=== PATIENT | female | born 1935 | race Caucasian/White ===

== ENCOUNTER 2017-11-18 07:37 | Emergency (ER) | payer MEDICARE, BC ==
[2017-11-18] MEDS ORDERED: Naproxen TAB* 250 MG PO ONE (08:55)
--- NOTE | 2017-11-18 09:17 | RAD ---
INDICATION: Headaches COMPARISON: CT brain October 24, 2008 TECHNIQUE: Noncontrast axial source images were acquired from the skull base to the vertex. FINDINGS: Ventricles/sulci: The ventricles and cisterns are normal in size and configuration for age. Brain parenchyma: There is no focal parenchymal finding, evidence of intracranial mass, or intracranial mass effect. Intracranial hemorrhage:None. Extra-axial spaces: There are no abnormal extra axial fluid collections or evidence of extra-axial mass. Calvarium: There is no calvarial fracture or other calvarial abnormality. Scalp: There is no evidence of scalp or extracalvarial soft tissue abnormality. Paranasal sinuses/mastoid: The paranasal sinuses and mastoid air cells are clear. Other: None. IMPRESSION: No acute intracranial findings
[2017-11-18 09:40] LABS: Urine Appearance Clear; Urine Blood Negative (Negative); Urine Color Yellow; Urine Ketones Negative (Negative); Urine Protein Negative (Negative); Urine Specific Gravity 1.012 (1.010-1.030); Urine Urobilinogen Negative (Negative)
[2017-11-18 10:17] VITALS: BP 146/68
--- NOTE | 2017-11-19 14:34 | ED ---
Ranjith Romero Angela, scribed for Elvis Hernandez MD on 11/18/17 at 0904 . Headache - HPI Summary HPI Summary: This pt is a 82 y/o female presenting to [facility] c/o headache for the past 6 weeks ago. Pt reports her headache is located in the back of her head and on the frontal area. She rates her headache 5/10 in severity. She denies nasal discharge, blurry vision, tingling, difficulty ambulating, dysuria, hematuria, frequency, urgency. Pt denies recent cold symptoms. Pt takes oxycodone two 300 mg a day. She is also on Xanax 0.5, Ambien, Seroquel. Denies hx of sinusitis. PMHx: migraines. - History Of Current Complaint Chief Complaint: EDHeadache Stated Complaint: HEADACHE Time Seen by Provider: 11/18/17 08:50 Hx Obtained From: Patient Hx Last Menstrual Period: n/a Onset/Duration: Started weeks ago, Still Present Currently Pain Is: Moderate - 5/10 Timing: Constant Location of Headache: Frontal, Occipital Aggravating Factor: Nothing Allevating Factors: Nothing Associated Signs And Symptoms: Negative - Allergies/Home Medications Allergies/Adverse Reactions: Allergies Allergy/AdvReac Type Severity Reaction Status Date / Time baclofen Allergy Rash Verified 11/18/17 07:44 propoxyphene Allergy Rash Verified 11/18/17 07:44 [From Michael] Home Medications: Home Medications Zolpidem CR (NF) [Ambien CR (NF)] 2 tab PO BEDTIME 11/18/17 [History Confirmed 11/18/17] PMH/Surg Hx/FS Hx/Imm Hx Endocrine/Hematology History: Denies: Hx Diabetes Cardiovascular History: Denies: Hx Hypertension, Hx Pacemaker/ICD Respiratory History: Denies: Hx Asthma GI History: Reports: Hx Gastroesophageal Reflux Disease - occas zantac History: Denies: Hx Renal Disease Musculoskeletal History: Reports: Hx Arthritis - BACK, SHOULDERS, Hx Back Problems - S/P lumbar laminectomies 02/01 Sensory History: Reports: Hx Contacts or Glasses Denies: Hx Hearing Aid Opthamlomology History: Reports: Hx Contacts or Glasses Neurological History: Reports: Hx Migraine - PRN HEADACHES- Psychiatric History: Reports: Hx Anxiety, Hx Depression - Being followed by family MD taking med, Hx Panic Disorder - Cancer History Cancer Type, 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 LAMINECTOMY L2 -L4 02-21-12 AT [facility] [place]. X2. 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 Infectious Disease History: No Infectious Disease History: Denies: History Other Infectious Disease, Traveled Outside the [place] in Last 30 Days - Family History Known Family History: Positive: Cardiac Disease - mother, Hypertension - mother Family History: no cardio vascular issues reported - Social History Alcohol Use: Occasionally Substance Use Type: Reports: Prescribed Substance Use Comment - Amount & Last Used: hydrocodone Hx Tobacco Use: No Smoking Status (MU): Never Smoked Tobacco Review of Systems Negative: Fever, Chills Negative: Blurred Vision, Erythema Negative: Sore Throat, Nasal Discharge Negative: Chest Pain Negative: Shortness Of Breath, Cough Negative: Abdominal Pain, Vomiting, Nausea Negative: dysuria, frequency, hematuria, urgency Negative: Myalgia, Edema Negative: Rash Neurological: Other - NEG: dizziness, difficulty ambulating Positive: Headache. Negative: Paresthesia All Other Systems Reviewed And Are Negative: Yes Physical Exam - Summary Physical Exam Summary: Constitutional: Well-developed, Well-nourished, Alert. (-) Distressed Skin: Warm, Dry HENT: Normocephalic; Atraumatic Eyes: Conjunctiva normal Neck: Musculoskeletal ROM normal neck. (-) JVD, (-) Stridor, (-) Tracheal deviation Cardio: Rhythm regular, rate normal, Heart sounds normal; Intact distal pulses; The pedal pulses are 2+ and symmetric. Radial pulses are 2+ and symmetric. (-) Murmur Pulmonary/Chest wall: Effort normal. (-) Respiratory distress, (-) Wheezes, (-) Rales Abd: Soft. (-) Tenderness, (-) Distension, (-) Guarding, (-) Rebound Musculoskeletal: (-) Edema Lymph: (-) Cervical adenopathy Neuro: Alert, Oriented x3, Strength normal, Cranial nerves II-XII are grossly intact. (-) Dysmetria, (-) Nystagmus, (-) Ataxia by finger to nose testing, (-) Sensory deficit. Psych: Mood and affect Normal Triage Information Reviewed: Yes Vital Signs On Initial Exam: Initial Vitals Temp Pulse Resp BP Pulse Ox 98.9 F 92 16 148/68 99 11/18/17 07:41 11/18/17 07:41 11/18/17 07:41 11/18/17 07:41 11/18/17 07:41 Vital Signs Reviewed: Yes - Sunil Coma Scale Best Eye Response: 4 - Spontaneous Best Motor Response: 6 - Obeys Commands Best Verbal Response: 5 - Oriented Coma Scale Total: 15 Diagnostics - Vital Signs Vital Signs Temp Pulse Resp BP Pulse Ox 11/18/17 07:41 98.9 F 92 16 148/68 99 - Laboratory Lab Statement: Any lab studies that have been ordered have been reviewed, and results considered in the medical decision making process. - CT Brain CT CT Interpretation: No Acute Changes - IMPRESSION: No acute intracranial findings. Dr. Hernandez has reviewed this radiology report. CT Interpretation Completed By: Radiologist Re-Evaluation - Re-Evaluation First Eval Re-Evaluation Time: 09:58 Comment: I discussed with the pt that she may need an outpatient MRI given the duration of her headache. Headache Course/Dx - Course Course Of Treatment: Brain CT was ordered and it resulted negative. Urinalysis was obtained. I discussed with the pt that she may need an outpatient MRI given the duration of her headache. Pt was discharged home with a prescription for naproxen. She was given return to ED instructions. - Diagnoses Provider Diagnoses: Chronic headache Discharge - Discharge Plan Condition: Stable Disposition: HOME Prescriptions: Naproxen TAB* [Naprosyn 250 mg TAB*] 500 mg PO Q8H PRN #15 tab PRN Reason: Pain Scale 6-10 Patient Education Materials: General Headache (ED) Referrals: Kelton Gomez MD [Primary Care Provider] - 2 Days (in 2-3 days.) Additional Instructions: You may need an outpatient MRI given the duration of your headache. Follow up with your primary care provider in 2-3 days. RETURN TO THE EMERGENCY DEPARTMENT FOR CHANGING OR WORSENING SYMPTOMS. The documentation as recorded by the Ranjith vargas Angela accurately reflects the service I personally performed and the decisions made by me, Elvis Hernandez MD.
== END 2017-11-18 10:16 | disposition home or self-care (01) ==
LOC: ED 07:37
DX: R51 Headache (principal)
CPT/HCPCS: 70450; 81003; 81015; 87077; 87086; 87186; 99282; A9270-GY

== ENCOUNTER 2017-12-15 04:21 | Emergency (ER) | payer MEDICARE, BC ==
[2017-12-15] MEDS ORDERED: Aspirin TAB* 325 MG PO ONE (04:48)
[2017-12-15] MEDS ORDERED: Aspirin Low Dose CHEW TAB* 81 MG ONE (05:22)
[2017-12-15] MEDS ORDERED: Aspirin Low Dose CHEW TAB* 81 MG PO ONE ×2 (05:30→05:32)
[2017-12-15 06:07] LABS: ABS Basophils 0.1 10^3/ul (0-0.2); ABS Eosinophils 0.2 10^3/ul (0-0.6); ABS Lymphocytes 2.3 10^3/ul (1.0-4.8); ABS Monocytes 0.4 10^3/ul (0-0.8); ABS Neutrophils 3.3 10^3/ul (1.5-7.7); ABS Nucleated RBC 0 10^3/ul; Eosinophil % 2.6 % (0-6); Hematocrit 38 % (35-47); Hemoglobin 12.9 g/dl (12.0-16.0); Lymphocyte % 36.1 % (25-47); Mean Corpuscular HGB Conc 34 g/dl (31-36); Mean Corpuscular Hemoglobin 30 pg (27-31); Mean Corpuscular Volume 88 fL (80-97); Mean Platelet Volume 7.6 um3 (7.4-10.4); Nucleated Red Blood Cells % 0.1; Platelet Count 182 10^3/ul (150-450); Red Blood Count 4.32 10^6/ul (4.0-5.4); Red Cell Distribution Width 14 % (10.5-15); White Blood Count 6.2 10^3/ul (3.5-10.8)
[2017-12-15 06:29] LABS: EGFR Non-African American 104.2 (>60)
[2017-12-15 07:16] VITALS: BP 143/64
--- NOTE | 2017-12-15 08:25 | RAD ---
Indication: Chest discomfort and LEFT shoulder pain. Comparison: March 31, 2013 chest radiograph and August 15, [address] Technique: Upright AP 0500 hours Report: Mild prominence of interstitial markings without change. Mild prominence of the RIGHT infrahilar contour which appears different than the prior exam concerning for a potential perihilar mass. Negative for pleural effusions or pneumothorax. The heart, pulmonary vasculature, and mediastinal contours are unremarkable. IMPRESSION: 1. No evidence for pulmonary edema. 2. Potential RIGHT infrahilar mass. Consider contrast-enhanced CT for further assessment.
--- NOTE | 2017-12-17 12:03 | ED ---
Progress - Progress Note Progress Note: Patient seen for both headache and chest pain on the and of this month. During one of her visits (appears the ), a portable chest AP view was taken. There are no notes in either providers' report to indicate this was reviewed however discharge does not indicate there were any acute findings. Radiology's final report indicates "impression: 1. No evidence of pulmonary edema #2. Potential right infrahilar mass. Consider contrast-enhanced CT for further assessment." Discussed #2. findings with patient who reports she is no longer having a headache or chest pain and she denies shortness of breath or respiratory distress. She has not scheduled a follow-up with Dr. Little as advised to do so in d/c however after discussing these newfound results on chest x-ray, she agrees to do so. Explained this could be something that requires further imaging such as a CT scan and her primary care doctor will order that if necessary. Also explained if she develops any danger signs or symptoms in the meantime to return to the emergency department. Patient agrees with plan. Course/Dx - Diagnoses Provider Diagnoses: Palpitation, Atypical chest pain Discharge - Sign-Out/Discharge Documenting (check all that apply): Post-Discharge Follow Up - Discharge Plan Condition: Improved Disposition: HOME Patient Education Materials: Chest Pain (ED), Heart Palpitations (ED) Referrals: Kelton Gomez MD [Primary Care Provider] - 2 Days - Billing Disposition and Condition Condition: IMPROVED Disposition: HOME
== END 2017-12-15 07:14 | disposition home or self-care (01) ==
LOC: ED 04:21
DX: R00.2 Palpitations (principal); R07.9 Chest pain, unspecified
CPT/HCPCS: 36415; 71045; 80053; 83735; 83880; 84484; 85025; 93005; 99282; A9270-GY

== ENCOUNTER 2019-11-09 06:46 | Emergency (ER) | payer MEDICARE, BC, OTHER ==
--- OUTSIDE RECORDS SUMMARY | 2019-11-09 06:56 | XMS REPORT | Continuity of Care Document ---
:1935 External Reference #:[id number] Author Name MIGDALIA Camp Address [address] [place] [address] Care Team Providers Name Role Phone Jose Tuttle MD - Neurological Care Team Information Wire Chief [phone] Surgery Kelton Gomez MD - Family Medicine Care Team Information Wire Chief [phone] Natalee Bruce - Dermatology Care Team Information Wire Chief [facility] - Interventional Pain Care Team Information Wire Chief Medicine Donaldo Causey - Pain Care Team Information Wire Chief [phone] Vini Parish - Urology Care Team Information Wire Chief [phone] Jaycee Barton MD - Dermatology Care Team Information Wire Chief [phone] [facility] Physical Therapy - Care Team Information Wire Chief Physical Therapist Ranjith Cruz - Gastroenterology Care Team Information Wire Chief [phone] [facility] - Care Team Information Wire Chief Prost[facility] Physical Care Team Information Wire Chief Therapy - Physical Therapy Albert Rizzo MD - Gastroenterology Care Team Information Wire Chief Problems Active Problems Provider Date Depressive disorder Kelton Gomez M.D. Onset: 06/24/2011 Backache Kelton Gomez M.D. Onset: 11/13/2011 Hyperlipidemia Kelton Gomez M.D. Onset: 02/19/2012 Gastroesophageal reflux disease Kelton Gomez M.D. Onset: 09/26/2012 History of malignant melanoma of the skin Kelton Gomez M.D. Onset: 07/25 Bipolar disorder Kelton Gomez M.D. Onset: 09/30/2018 Multiple myeloma Kelton Gomez M.D. Onset: 06/19/2019 Nausea Kelton Gomez M.D. Onset: 04/18/2019 Weight decreased Kelton Gomez M.D. Onset: 04/18/2019 Social History Type Date Description Comments Sex Unknown Tobacco Use Start: Unknown Never Smoked Cigarettes ETOH Use Rarely consumes alcohol Tobacco Use Start: Unknown Patient has never smoked Smoking Status Reviewed: 07/14/18 Patient has never smoked Allergies, Adverse Reactions, Alerts Active Allergies Reaction Severity Comments Date Darvocet rash 08/22/1998 Baclofen hives 07/14/2012 Medications Active Medications SIG Qnty Indications Ordering Date Provider Doxycycline Hyclate 1 by mouth twice 20tabs R05 Jes 10/16/2019 a day for 10 Adrienne, TITLE 1 TUTOR 100mg Tablets days Omeprazole Take One Capsule 60caps Kelton FSundeep 04/18/2019 20mg Every Day Mariam Gomez Capsules DR Quetiapine Fumarate Take 2 Tablets 120tabs Kelton FSundeep 02/07/2019 By Mouth Every Mariam Gomez 25mg Tablets Day AT Bedtime Zolpidem Tartrate ER take 1-2 by 60Tablet Kelton FSundeep 01/17/2019 mouth 30 minutes Mariam Gomez 6.25mg Tablets ER prior to bedtime Tramadol HCL 1 by mouth every 100tabs Kelton FSundeep 01/16/2019 50mg 6 hours as Mariam Gomez Tablets needed Gabapentin Take 1 Capsule 90caps R07.89 Maryjo CSundeep 08/27/2018 300mg By Mouth Three 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 10/16/2019 Dispers times a day hours as needed nausea Immunizations CPT Code Status Date Vaccine Lot # [id number] Given 06/19/2019 High-Dose, Influenza Virus Vacccine-fluzone 65 and [id number] older 51178 Given 07/02/2018 High-Dose, Influenza Virus Vacccine-fluzone 65 and [id number] older 16969 Given 06/24/2017 High-Dose, Influenza Virus Vacccine-fluzone 65 and [id number] older 26887 Given 07/06/2016 High-Dose, Influenza Virus Vacccine-fluzone 65 and [id number] older 99966 Given 07/25/2015 High-Dose, Influenza Virus Vacccine-fluzone 65 and [id number] older 89989 Given 11/25/2014 Pneumococcal Conjugate Vacc-13 [id number] 30029 Given 07/20/2014 High-Dose, Influenza Virus Vacccine-fluzone 65 and [id number] older 91841 Given 10/05/2013 High-Dose, Influenza Virus Vacccine-fluzone 65 and [id number] older 67606 Given 09/26/2012 Zostivax [id number] 79504 Given 07/01/2012 High-Dose, Influenza Virus Vacccine-fluzone 65 and [id number] older [id number] Given 09/26/2011 Split Influenza Medicare: Fluzone 11279 Given 08/26/2009 DO Not Use Split Influenza Virus Vaccine [id number] 23189 Given 07/06/2008 Tdap Tetanus, W Pertussis [id number] 31799 Given 07/06/2008 DO Not Use Split Influenza Virus Vaccine [id number] 75333 Given 07/24/2007 Pneumococcal Immunization [id number] 40759 Given 07/22/2006 DO Not Use Split Influenza Virus Vaccine [id number] Vital Signs Date Vital Result Comment 10/16/2019 3:03pm BP Systolic 130 mmHg BP Diastolic 64 mmHg Heart Rate 100 /min Body Temperature 99.5 F Respiratory Rate 20 /min O2 % BldC Oximetry 94 % Height 58.5 inches 4'10.50" Weight 108.00 lb BMI (Body Mass Index) 22.2 kg/m2 09/11/2019 12:36pm BP Systolic 128 mmHg BP Diastolic 68 mmHg Heart Rate 72 /min Body Temperature 98.6 F Respiratory Rate 16 /min Weight 109.00 lb Results Test Acquired Date Facility Test Result H/L Range Note Flu A&B (Fma) 10/16/2019 [facility] Influenza A negative (607)- - Influenza B negative CBC Auto Diff 10/12/2019 [facility] White Blood Count 6.8 10^3/uL Normal 3.5- 10.8 Red Blood Count 4.13 10^6/uL Normal 3.70-4.87 Hemoglobin 12.7 g/dL Normal 12.0-16.0 Hematocrit 38 % Normal 35-47 Mean Corpuscular Volume 91 fL Normal 80-97 Mean Corpuscular Hemoglobin 31 pg Normal 27-31 Mean Corpuscular HGB Conc 34 g/dL Normal 31-36 Red Cell Distribution Width 17 % High 10-15 Platelet Count 171 10^3/uL Normal 150-450 Mean Platelet Volume 8.7 fL Normal 7.4-10.4 Abs Neutrophils 3.9 10^3/uL Normal 1.5-7.7 Abs Lymphocytes 1.1 10^3/uL Normal 1.0-4.8 Abs Monocytes 0.3 10^3/uL Normal 0-0.8 Abs Eosinophils 1.4 10^3/uL High 0-0.6 Abs Basophils 0.1 10^3/uL Normal 0-0.2 Abs Nucleated RBC 0.0 10^3/uL Granulocyte % 57.2 % Lymphocyte % 16.9 % Monocyte % 4.2 % Eosinophil % 20.3 % Basophil % 1.4 % Nucleated Red Blood Cells % 0.0 Comp Metabolic Panel 10/12/2019 [facility] Sodium 140 mmol/L Normal 135-145 Potassium 3.6 mmol/L Normal 3.5-5.0 Chloride 103 mmol/L Normal 101-111 Co2 Carbon Dioxide 32 mmol/L Normal 22-32 Anion Gap 5 mmol/L Normal 2-11 Glucose 89 mg/dL Normal 70-100 Blood Urea Nitrogen 9 mg/dL Normal 6-24 Creatinine 0.58 mg/dL Normal 0.51-0.95 BUN/Creatinine Ratio 15.5 Normal 8-20 Calcium 8.5 mg/dL Low 8.6-10.3 Total Protein 6.2 g/dL Low 6.4-8.9 Albumin 4.0 g/dL Normal 3.2-5.2 Globulin 2.2 g/dL Normal 2-4 Albumin/Globulin Ratio 1.8 Normal 1-3 Total Bilirubin 0.40 mg/dL Normal 0.2-1.0 Alkaline Phosphatase 79 U/L Normal 34-104 Alt 18 U/L Normal 7-52 Ast 22 U/L Normal 13-39 Egfr Non- 99.5 >60 Egfr 120.4 >60 1 CBC Auto Diff 10/05/2019 [facility] White Blood Count 6.6 10^3/uL Normal 3.5- 10.8 Red Blood Count 4.18 10^6/uL Normal 3.70-4.87 Hemoglobin 12.8 g/dL Normal 12.0-16.0 Hematocrit 38 % Normal 35-47 Mean Corpuscular Volume 91 fL Normal 80-97 Mean Corpuscular Hemoglobin 31 pg Normal 27-31 Mean Corpuscular HGB Conc 34 g/dL Normal 31-36 Red Cell Distribution Width 16 % High 10-15 Platelet Count 159 10^3/uL Normal 150-450 Mean Platelet Volume 8.0 fL Normal 7.4-10.4 Abs Neutrophils 3.6 10^3/uL Normal 1.5-7.7 Abs Lymphocytes 1.3 10^3/uL Normal 1.0-4.8 Abs Monocytes 0.6 10^3/uL Normal 0-0.8 Abs Eosinophils 0.9 10^3/uL High 0-0.6 Abs Basophils 0.1 10^3/uL Normal 0-0.2 Abs Nucleated RBC 0.0 10^3/uL Granulocyte % 55.2 % Lymphocyte % 20.4 % Monocyte % 9.3 % Eosinophil % 13.9 % Basophil % 1.2 % Nucleated Red Blood Cells % 0.0 Comp Metabolic Panel 10/05/2019 [facility] Sodium 140 mmol/L Normal 135-145 Potassium 3.6 mmol/L Normal 3.5-5.0 Chloride 103 mmol/L Normal 101-111 Co2 Carbon Dioxide 31 mmol/L Normal 22-32 Anion Gap 6 mmol/L Normal 2-11 Glucose 124 mg/dL High 70-100 Blood Urea Nitrogen 10 mg/dL Normal 6-24 Creatinine 0.64 mg/dL Normal 0.51-0.95 BUN/Creatinine Ratio 15.6 Normal 8-20 Calcium 8.9 mg/dL Normal 8.6-10.3 Total Protein 5.8 g/dL Low 6.4-8.9 Albumin 3.7 g/dL Normal 3.2-5.2 Globulin 2.1 g/dL Normal 2-4 Albumin/Globulin Ratio 1.8 Normal 1-3 Total Bilirubin 0.40 mg/dL Normal 0.2-1.0 Alkaline Phosphatase 73 U/L Normal 34-104 Alt 20 U/L Normal 7-52 Ast 21 U/L Normal 13-39 Egfr Non- 88.8 >60 Egfr 107.5 >60 2 [place]/Lambda Free Light 10/05/2019 [facility] [place] Free Light 14.4 mg/dL Abnormal 3 Chains Ser Chain Lambda Free Light Chain 0.8670 mg/dL 4 [place]/Lambda Free Light Chain 16.6 Abnormal 5 CBC Auto Diff 09/28/2019 [facility] White Blood Count 5.8 10^3/uL Normal 3.5- 10.8 Red Blood Count 4.09 10^6/uL Normal 3.70-4.87 Hemoglobin 12.6 g/dL Normal 12.0-16.0 Hematocrit 37 % Normal 35-47 Mean Corpuscular Volume 91 fL Normal 80-97 Mean Corpuscular Hemoglobin 31 pg Normal 27-31 Mean Corpuscular HGB Conc 34 g/dL Normal 31-36 Red Cell Distribution Width 16 % High 10-15 Platelet Count 185 10^3/uL Normal 150-450 Mean Platelet Volume 8.9 fL Normal 7.4-10.4 Abs Neutrophils 4.0 10^3/uL Normal 1.5-7.7 Abs Lymphocytes 0.8 10^3/uL Low 1.0-4.8 Abs Monocytes 0.5 10^3/uL Normal 0-0.8 Abs Eosinophils 0.4 10^3/uL Normal 0-0.6 Abs Basophils 0.1 10^3/uL Normal 0-0.2 Abs Nucleated RBC 0.0 10^3/uL Granulocyte % 69.2 % Lymphocyte % 14.4 % Monocyte % 8.1 % Eosinophil % 7.3 % Basophil % 1.0 % Nucleated Red Blood Cells % 0.0 Comp Metabolic Panel 09/28/2019 [facility] Sodium 140 mmol/L Normal 135-145 Potassium 3.4 mmol/L Low 3.5-5.0 Chloride 101 mmol/L Normal 101-111 Co2 Carbon Dioxide 34 mmol/L High 22-32 Anion Gap 5 mmol/L Normal 2-11 Glucose 101 mg/dL High 70-100 Blood Urea Nitrogen 9 mg/dL Normal 6-24 Creatinine 0.61 mg/dL Normal 0.51-0.95 BUN/Creatinine Ratio 14.8 Normal 8-20 Calcium 9.1 mg/dL Normal 8.6-10.3 Total Protein 6.2 g/dL Low 6.4-8.9 Albumin 4.0 g/dL Normal 3.2-5.2 Globulin 2.2 g/dL Normal 2-4 Albumin/Globulin Ratio 1.8 Normal 1-3 Total Bilirubin 0.40 mg/dL Normal 0.2-1.0 Alkaline Phosphatase 71 U/L Normal 34-104 Alt 21 U/L Normal 7-52 Ast 21 U/L Normal 13-39 Egfr Non- 93.9 >60 Egfr 113.6 >60 6 CBC Auto Diff 09/21/2019 [facility] White Blood Count 5.3 10^3/uL Normal 3.5- 10.8 Red Blood Count 3.99 10^6/uL Normal 3.70-4.87 Hemoglobin 12.3 g/dL Normal 12.0-16.0 Hematocrit 36 % Normal 35-47 Mean Corpuscular Volume 91 fL Normal 80-97 Mean Corpuscular Hemoglobin 31 pg Normal 27-31 Mean Corpuscular HGB Conc 34 g/dL Normal 31-36 Red Cell Distribution Width 16 % High 10-15 Platelet Count 218 10^3/uL Normal 150-450 Mean Platelet Volume 8.5 fL Normal 7.4-10.4 Abs Neutrophils 3.6 10^3/uL Normal 1.5-7.7 Abs Lymphocytes 1.0 10^3/uL Normal 1.0-4.8 Abs Monocytes 0.4 10^3/uL Normal 0-0.8 Abs Eosinophils 0.3 10^3/uL Normal 0-0.6 Abs Basophils 0.0 10^3/uL Normal 0-0.2 Abs Nucleated RBC 0.0 10^3/uL Granulocyte % 68.0 % Lymphocyte % 18.8 % Monocyte % 6.8 % Eosinophil % 5.8 % Basophil % 0.6 % Nucleated Red Blood Cells % 0.0 CBC Auto Diff 09/14/2019 [facility] White Blood Count 4.7 10^3/uL Normal 3.5- 10.8 Red Blood Count 4.08 10^6/uL Normal 3.70-4.87 Hemoglobin 12.9 g/dL Normal 12.0-16.0 Hematocrit 37 % Normal 35-47 Mean Corpuscular Volume 92 fL Normal 80-97 Mean Corpuscular Hemoglobin 32 pg High 27-31 Mean Corpuscular HGB Conc 35 g/dL Normal 31-36 Red Cell Distribution Width 15 % Normal 10-15 Platelet Count 159 10^3/uL Normal 150-450 Mean Platelet Volume 7.8 fL Normal 7.4-10.4 Abs Neutrophils 2.7 10^3/uL Normal 1.5-7.7 Abs Lymphocytes 1.1 10^3/uL Normal 1.0-4.8 Abs Monocytes 0.6 10^3/uL Normal 0-0.8 Abs Eosinophils 0.2 10^3/uL Normal 0-0.6 Abs Basophils 0.1 10^3/uL Normal 0-0.2 Abs Nucleated RBC 0.0 10^3/uL Granulocyte % 57.1 % Lymphocyte % 24.1 % Monocyte % 13.2 % Eosinophil % 3.5 % Basophil % 2.1 % Nucleated Red Blood Cells % 0.1 Comp Metabolic Panel 09/14/2019 [facility] Sodium 142 mmol/L Normal 135-145 Potassium 4.0 mmol/L Normal 3.5-5.0 Chloride 105 mmol/L Normal 101-111 Co2 Carbon Dioxide 32 mmol/L Normal 22-32 Anion Gap 5 mmol/L Normal 2-11 Glucose 112 mg/dL High 70-100 Blood Urea Nitrogen 12 mg/dL Normal 6-24 Creatinine 0.59 mg/dL Normal 0.51-0.95 BUN/Creatinine Ratio 20.3 High 8-20 Calcium 9.4 mg/dL Normal 8.6-10.3 Total Protein 6.4 g/dL Normal 6.4-8.9 Albumin 4.1 g/dL Normal 3.2-5.2 Globulin 2.3 g/dL Normal 2-4 Albumin/Globulin Ratio 1.8 Normal 1-3 Total Bilirubin 0.40 mg/dL Normal 0.2-1.0 Alkaline Phosphatase 67 U/L Normal 34-104 Alt 16 U/L Normal 7-52 Ast 18 U/L Normal 13-39 Egfr Non- 97.6 >60 Egfr 118.1 >60 7 CBC Auto Diff 09/07/2019 [facility] White Blood Count 8.0 10^3/uL Normal 3.5- 10.8 Red Blood Count 4.07 10^6/uL Normal 3.70-4.87 Hemoglobin 12.6 g/dL Normal 12.0-16.0 Hematocrit 37 % Normal 35-47 Mean Corpuscular Volume 91 fL Normal 80-97 Mean Corpuscular Hemoglobin 31 pg Normal 27-31 Mean Corpuscular HGB Conc 34 g/dL Normal 31-36 Red Cell Distribution Width 15 % Normal 10-15 Platelet Count 179 10^3/uL Normal 150-450 Mean Platelet Volume 8.3 fL Normal 7.4-10.4 Abs Neutrophils 5.6 10^3/uL Normal 1.5-7.7 Abs Lymphocytes 1.1 10^3/uL Normal 1.0-4.8 Abs Monocytes 0.8 10^3/uL Normal 0-0.8 Abs Eosinophils 0.4 10^3/uL Normal 0-0.6 Abs Basophils 0.1 10^3/uL Normal 0-0.2 Abs Nucleated RBC 0.0 10^3/uL Granulocyte % 69.9 % Lymphocyte % 13.5 % Monocyte % 10.3 % Eosinophil % 5.4 % Basophil % 0.9 % Nucleated Red Blood Cells % 0.0 Comp Metabolic Panel 09/07/2019 [facility] Sodium 142 mmol/L Normal 135-145 Potassium 3.8 mmol/L Normal 3.5-5.0 Chloride 104 mmol/L Normal 101-111 Co2 Carbon Dioxide 32 mmol/L Normal 22-32 Anion Gap 6 mmol/L Normal 2-11 Glucose 100 mg/dL Normal 70-100 Blood Urea Nitrogen 10 mg/dL Normal 6-24 Creatinine 0.60 mg/dL Normal 0.51-0.95 BUN/Creatinine Ratio 16.7 Normal 8-20 Calcium 9.8 mg/dL Normal 8.6-10.3 Total Protein 6.6 g/dL Normal 6.4-8.9 Albumin 4.4 g/dL Normal 3.2-5.2 Globulin 2.2 g/dL Normal 2-4 Albumin/Globulin Ratio 2.0 Normal 1-3 Total Bilirubin 0.40 mg/dL Normal 0.2-1.0 Alkaline Phosphatase 66 U/L Normal 34-104 Alt 19 U/L Normal 7-52 Ast 20 U/L Normal 13-39 Egfr Non- 95.7 >60 Egfr 115.8 >60 8 Comp Metabolic Panel 08/31/2019 [facility] Sodium 141 mmol/L Normal 135-145 Potassium 3.9 mmol/L Normal 3.5-5.0 Chloride 101 mmol/L Normal 101-111 Co2 Carbon Dioxide 33 mmol/L High 22-32 Anion Gap 7 mmol/L Normal 2-11 Glucose 117 mg/dL High 70-100 Blood Urea Nitrogen 8 mg/dL Normal 6-24 Creatinine 0.56 mg/dL Normal 0.51-0.95 BUN/Creatinine Ratio 14.3 Normal 8-20 Calcium 10.0 mg/dL Normal 8.6-10.3 Total Protein 6.4 g/dL Normal 6.4-8.9 Albumin 4.5 g/dL Normal 3.2-5.2 Globulin 1.9 g/dL Low 2-4 Albumin/Globulin Ratio 2.4 Normal 1-3 Total Bilirubin 0.30 mg/dL Normal 0.2-1.0 Alkaline Phosphatase 67 U/L Normal 34-104 Alt 17 U/L Normal 7-52 Ast 22 U/L Normal 13-39 Egfr Non- 103.6 >60 Egfr 125.4 >60 9 CBC Auto Diff 08/31/2019 [facility] White Blood Count 4.6 10^3/uL Normal 3.5- 10.8 Red Blood Count 4.00 10^6/uL Normal 3.70-4.87 Hemoglobin 12.2 g/dL Normal 12.0-16.0 Hematocrit 36 % Normal 35-47 Mean Corpuscular Volume 91 fL Normal 80-97 Mean Corpuscular Hemoglobin 30 pg Normal 27-31 Mean Corpuscular HGB Conc 33 g/dL Normal 31-36 Red Cell Distribution Width 15 % Normal 10-15 Platelet Count 197 10^3/uL Normal 150-450 Mean Platelet Volume 7.3 fL Low 7.4-10.4 Abs Neutrophils 3.1 10^3/uL Normal 1.5-7.7 Abs Lymphocytes 0.7 10^3/uL Low 1.0-4.8 Abs Monocytes 0.4 10^3/uL Normal 0-0.8 Abs Eosinophils 0.3 10^3/uL Normal 0-0.6 Abs Basophils 0.0 10^3/uL Normal 0-0.2 Abs Nucleated RBC 0.0 10^3/uL Granulocyte % 68.5 % Lymphocyte % 16.0 % Monocyte % 9.2 % Eosinophil % 5.6 % Basophil % 0.7 % Nucleated Red Blood Cells % 0.1 Laboratory test 08/25/2019 [facility] Point of Care 108 mg/dL High 70-100 10 finding Glucose CBC Auto Diff 08/24/2019 [facility] White Blood Count 4.5 10^3/uL Normal 3.5- 10.8 Red Blood Count 4.03 10^6/uL Normal 3.70-4.87 Hemoglobin 12.4 g/dL Normal 12.0-16.0 Hematocrit 36 % Normal 35-47 Mean Corpuscular Volume 90 fL Normal 80-97 Mean Corpuscular Hemoglobin 31 pg Normal 27-31 Mean Corpuscular HGB Conc 34 g/dL Normal 31-36 Red Cell Distribution Width 15 % Normal 10-15 Platelet Count 219 10^3/uL Normal 150-450 Mean Platelet Volume 6.9 fL Low 7.4-10.4 Abs Neutrophils 2.7 10^3/uL Normal 1.5-7.7 Abs Lymphocytes 1.2 10^3/uL Normal 1.0-4.8 Abs Monocytes 0.4 10^3/uL Normal 0-0.8 Abs Eosinophils 0.2 10^3/uL Normal 0-0.6 Abs Basophils 0.0 10^3/uL Normal 0-0.2 Abs Nucleated RBC 0.0 10^3/uL Granulocyte % 59.7 % Lymphocyte % 26.5 % Monocyte % 9.1 % Eosinophil % 4.0 % Basophil % 0.7 % Nucleated Red Blood Cells % 0.1 Comp Metabolic Panel 08/24/2019 [facility] Sodium 140 mmol/L Normal 135-145 Potassium 4.1 mmol/L Normal 3.5-5.0 Chloride 105 mmol/L Normal 101-111 Co2 Carbon Dioxide 30 mmol/L Normal 22-32 Anion Gap 5 mmol/L Normal 2-11 Glucose 102 mg/dL High 70-100 Blood Urea Nitrogen 13 mg/dL Normal 6-24 Creatinine 0.63 mg/dL Normal 0.51-0.95 BUN/Creatinine Ratio 20.6 High 8-20 Calcium 10.0 mg/dL Normal 8.6-10.3 Total Protein 6.7 g/dL Normal 6.4-8.9 Albumin 4.6 g/dL Normal 3.2-5.2 Globulin 2.1 g/dL Normal 2-4 Albumin/Globulin Ratio 2.2 Normal 1-3 Total Bilirubin 0.40 mg/dL Normal 0.2-1.0 Alkaline Phosphatase 66 U/L Normal 34-104 Alt 15 U/L Normal 7-52 Ast 25 U/L Normal 13-39 Egfr Non- 90.5 >60 Egfr 109.5 >60 11 Leukemia/Lymphoma Phenot 07/13/2019 [facility] Path Interpretation 2-8 Marker TNP Path Interpret 9-15 Marker (SEE NOTE) 12 Path Interpret > 16 Marker TNP Plasma Cell Profliferative 07/13/2019 [facility] Plasma Cell Dis Res Abnormal Disorder Summary Plasma Cell Prolif Specimen Bone Marrow Plasma Cell Referral Reason multiple myeloma <SEE NOTE> 13 Plasma Cell Prolif Dis Method See Comment 14 Plasma Cell Dis Result Table See Comment 15 Plasma Cell Prolif Dis Results See Comment 16 Plasma Cell Dis Interpretation See Comment 17 Plasma Cell Dis Disclaimer See Comment 18 Plasma Cell Dis Released By See Comment 19 Bone Marrow Chromosomes 07/13/2019 [facility] BM Result Summary Normal BM Chromosome Specimen Bone Marrow BM Referral Reason multiple myeloma <SEE NOTE> 20 BM Chromosome Method See Comment 21 BM Chromo Banding Method See Comment 22 BM Cromosome Results 46,XX[20] BM Chromosome Interpretation See Comment 23 Released By See Comment 24 CBC Auto Diff 07/13/2019 [facility] White Blood Count 4.8 10^3/uL Normal 3.5- 10.8 Red Blood Count 3.95 10^6/uL Normal 3.70-4.87 Hemoglobin 11.9 g/dL Low 12.0-16.0 Hematocrit 36 % Normal 35-47 Mean Corpuscular Volume 90 fL Normal 80-97 Mean Corpuscular Hemoglobin 30 pg Normal 27-31 Mean Corpuscular HGB Conc 33 g/dL Normal 31-36 Red Cell Distribution Width 15 % Normal 10-15 Platelet Count 195 10^3/uL Normal 150-450 Mean Platelet Volume 7.2 fL Low 7.4-10.4 Abs Neutrophils 2.4 10^3/uL Normal 1.5-7.7 Abs Lymphocytes 1.9 10^3/uL Normal 1.0-4.8 Abs Monocytes 0.4 10^3/uL Normal 0-0.8 Abs Eosinophils 0.2 10^3/uL Normal 0-0.6 Abs Basophils 0.0 10^3/uL Normal 0-0.2 Abs Nucleated RBC 0.0 10^3/uL Granulocyte % 49.0 % Lymphocyte % 39.6 % Monocyte % 7.3 % Eosinophil % 3.7 % Basophil % 0.4 % Nucleated Red Blood Cells % 0.1 Xray 06/08/2019 [facility] MRI Thoracic Spine W/Wo Contrast <pending> [phone] Mammography Screening, Bilateral; 2-View Each Breast <pending> CBC Auto Diff 06/05/2019 [facility] White Blood Count 6.0 10^3/uL Normal 3.5- 10.8 Red Blood Count 4.33 10^6/uL Normal 3.70-4.87 Hemoglobin 13.2 g/dL Normal 12.0-16.0 Hematocrit 39 % Normal 35-47 Mean Corpuscular Volume 89 fL Normal 80-97 Mean Corpuscular Hemoglobin 30 pg Normal 27-31 Mean Corpuscular HGB Conc 34 g/dL Normal 31-36 Red Cell Distribution Width 16 % High 10-15 Platelet Count 183 10^3/uL Normal 150-450 Mean Platelet Volume 7.4 fL Normal 7.4-10.4 Abs Neutrophils 3.1 10^3/uL Normal 1.5-7.7 Abs Lymphocytes 2.2 10^3/uL Normal 1.0-4.8 Abs Monocytes 0.4 10^3/uL Normal 0-0.8 Abs Eosinophils 0.2 10^3/uL Normal 0-0.6 Abs Basophils 0.1 10^3/uL Normal 0-0.2 Abs Nucleated RBC 0.0 10^3/uL Granulocyte % 52.0 % Lymphocyte % 37.2 % Monocyte % 7.2 % Eosinophil % 2.7 % Basophil % 0.9 % Nucleated Red Blood Cells % 0.1 [place]/Lambda Free Light 06/05/2019 [facility] [place] Free Light 221 mg/dL Abnormal 25 Chains Ser Chain Lambda Free Light Chain 0.1280 mg/dL Abnormal 26 [place]/Lambda Free Light Chain >1000 Abnormal 27 Protein Electrophoresis 06/05/2019 [facility] Total Protein(Pep) 6.7 g/dL 6.3 - 7.9 Albumin 3.7 g/dL 3.4-4.7 Alpha-1 Globulin 0.2 g/dL 0.1-0.3 Alpha-2 Globulin 1.3 g/dL Abnormal 0.6-1.0 Beta Globulin 1.1 g/dL 0.7-1.2 Gamma Globulin 0.4 g/dL Abnormal 0.6-1.6 Albumin/Globulin Ratio 1.21 Impression See Comment 28 Laboratory test 05/05/2019 [facility] Clotest SEE RESULT BELOW 29, 30 finding Laboratory test 05/05/2019 [facility] Surgical Pathology SEE RESULT BELOW 31 , 32 finding Order 1 Because ethnic data is not always readily available, this report includes an eGFR for both -Americans and non- Americans. The National Kidney Disease Education Program (NKDEP) does not endorse the use of the MDRD equation for patients that are not between the ages of 18 and 70, are , have extremes of body size, muscle mass, or nutritional status, or are non- or non-. According to the National Kidney Foundation, irrespective of diagnosis, the stage of the disease is based on the level of kidney function: Stage Description GFR(mL/min/1.73 m(2)) 1 Kidney damage with normal or decreased GFR 90 2 Kidney damage with mild decrease in GFR 60-89 3 Moderate decrease in GFR 30-59 4 Severe decrease in GFR 15-29 5 Kidney failure <15 (or dialysis) 2 Because ethnic data is not always readily available, this report includes an eGFR for both -Americans and non- Americans. The National Kidney Disease Education Program (NKDEP) does not endorse the use of the MDRD equation for patients that are not between the ages of 18 and 70, are , have extremes of body size, muscle mass, or nutritional status, or are non- or non-. According to the National Kidney Foundation, irrespective of diagnosis, the stage of the disease is based on the level of kidney function: Stage Description GFR(mL/min/1.73 m(2)) 1 Kidney damage with normal or decreased GFR 90 2 Kidney damage with mild decrease in GFR 60-89 3 Moderate decrease in GFR 30-59 4 Severe decrease in GFR 15-29 5 Kidney failure <15 (or dialysis) 3 REFERENCE VALUE 0.3300-1.94 4 REFERENCE VALUE 0.5700-2.63 5 REFERENCE VALUE 0.2600-1.65 Test Performed by: [facility] [address] [place] [address] Dispensing Optician: Yang Eldridge M.D. Ph.D.; IA# [id number] 6 Because ethnic data is not always readily available, this report includes an eGFR for both -Americans and non- Americans. The National Kidney Disease Education Program (NKDEP) does not endorse the use of the MDRD equation for patients that are not between the ages of 18 and 70, are , have extremes of body size, muscle mass, or nutritional status, or are non- or non-. According to the National Kidney Foundation, irrespective of diagnosis, the stage of the disease is based on the level of kidney function: Stage Description GFR(mL/min/1.73 m(2)) 1 Kidney damage with normal or decreased GFR 90 2 Kidney damage with mild decrease in GFR 60-89 3 Moderate decrease in GFR 30-59 4 Severe decrease in GFR 15-29 5 Kidney failure <15 (or dialysis) 7 Because ethnic data is not always readily available, this report includes an eGFR for both -Americans and non- Americans. The National Kidney Disease Education Program (NKDEP) does not endorse the use of the MDRD equation for patients that are not between the ages of 18 and 70, are , have extremes of body size, muscle mass, or nutritional status, or are non- or non-. According to the National Kidney Foundation, irrespective of diagnosis, the stage of the disease is based on the level of kidney function: Stage Description GFR(mL/min/1.73 m(2)) 1 Kidney damage with normal or decreased GFR 90 2 Kidney damage with mild decrease in GFR 60-89 3 Moderate decrease in GFR 30-59 4 Severe decrease in GFR 15-29 5 Kidney failure <15 (or dialysis) 8 Because ethnic data is not always readily available, this report includes an eGFR for both -Americans and non- Americans. The National Kidney Disease Education Program (NKDEP) does not endorse the use of the MDRD equation for patients that are not between the ages of 18 and 70, are , have extremes of body size, muscle mass, or nutritional status, or are non- or non-. According to the National Kidney Foundation, irrespective of diagnosis, the stage of the disease is based on the level of kidney function: Stage Description GFR(mL/min/1.73 m(2)) 1 Kidney damage with normal or decreased GFR 90 2 Kidney damage with mild decrease in GFR 60-89 3 Moderate decrease in GFR 30-59 4 Severe decrease in GFR 15-29 5 Kidney failure <15 (or dialysis) 9 Because ethnic data is not always readily available, this report includes an eGFR for both -Americans and non- Americans. The National Kidney Disease Education Program (NKDEP) does not endorse the use of the MDRD equation for patients that are not between the ages of 18 and 70, are , have extremes of body size, muscle mass, or nutritional status, or are non- or non-. According to the National Kidney Foundation, irrespective of diagnosis, the stage of the disease is based on the level of kidney function: Stage Description GFR(mL/min/1.73 m(2)) 1 Kidney damage with normal or decreased GFR 90 2 Kidney damage with mild decrease in GFR 60-89 3 Moderate decrease in GFR 30-59 4 Severe decrease in GFR 15-29 5 Kidney failure <15 (or dialysis) 10 Ware Tester: [id number] 11 Because ethnic data is not always readily available, this report includes an eGFR for both -Americans and non- Americans. The National Kidney Disease Education Program (NKDEP) does not endorse the use of the MDRD equation for patients that are not between the ages of 18 and 70, are , have extremes of body size, muscle mass, or nutritional status, or are non- or non-. According to the National Kidney Foundation, irrespective of diagnosis, the stage of the disease is based on the level of kidney function: Stage Description GFR(mL/min/1.73 m(2)) 1 Kidney damage with normal or decreased GFR 90 2 Kidney damage with mild decrease in GFR 60-89 3 Moderate decrease in GFR 30-59 4 Severe decrease in GFR 15-29 5 Kidney failure <15 (or dialysis) 12 FINAL DIAGNOSIS: Specimen Source: Bone marrow Flow cytometry immunophenotypic analysis: Involved by clonal, kappa light chain restricted plasma cell population (2% of gated) Interpretative data: Blasts: 0% Lymphocytes: 49% of WBCs B-cells: 4% of lymphocytes with no evidence of light chain restriction or other immunophenotypic abnormalities T-cells/NK cells: No aberrant population detected. Plasma cells: Clonal, kappa restricted plasma cells are 2% of gated. Markers tested: CD3, CD10, CD16, CD19, CD34, CD45, kappa surface light chains, lambda surface light chains, CD19, CD38, CD45, CD138 and cytoplasmic kappa and lambda light chains, 7-AAD. Quality Assessment: Acceptable Viability: Acceptable Viable lymphocytes (7-AAD): 98% of gated Specimen received within validated guidelines. A Joseph-Giemsa stained slide prepared from the flow cytometry specimen was examined for quality purposes. Electronically signed by: Abisai Long MD 07/15/19 8308 Technical component performed by: [place] [address] Wash Operator: Yang Eldridge II, MD, PhD. 13 multiple myeloma/MM 14 Locus and probes [Strategy;#Nuclei;Class] 1p36.3(TP73),1q22 [COPY#;50;LDT] 3CEN(D3Z1),7CEN(D7Z1) [COPY#;50;ASR] 8q24(5'MYC,3'MYC) [BAP;50;ASR] 9CEN(D9Z1),15CEN(D15Z4) [COPY#;50;ASR] 11q13(CCND1-XT),14q32(IGH-XT) [DFISH;50;ASR] 13q14(RB1),13q34(LAMP1) [COPY#;50;ASR] 14q32(3'IGH,5'IGH) [BAP;50;LDT] 17p13.1(TP53),17CEN(D17Z1) [COPY#;50;ASR] Probe strategies include: DFISH=dual color, double fusion; BAP=break-apart probe; COPY#=region gain and loss. 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 At diagnosis, the combination of monosomy 13 and t(11;14) has uncertain prognostic significance in multiple myeloma (Hirsch et al., Blood 101:5720-5379, 2003). The prognostic significance for these abnormalities in MGUS, amyloidosis, or smoldering multiple myeloma is unknown. Additional cytogenetic studies are reported separately. 18 Applicable to Analyte Specific Reagent (ASR) and Laboratory Developed Tests (LDT). This test was developed and its performance characteristics determined by [facility] in a manner consistent with CLIA requirements. It has not been cleared or approved by the U.S. Food and Drug Administration. This FISH test does not rule out other chromosome abnormalities. 19 RESULT: Apryl Haskins M.D. Test Performed by: [place] [address] Dispensing Optician: Yang Eldridge M.D. Ph.D.; CLIA# [id number] 20 multiple myeloma/MM 21 RESULT: Culture without mitogens 22 Band Resolution: <400 Stain Name Cells Analyzed Cells Karyograms Counted Prepared GTL 20 0 2 Total 20 0 2 Murrell to Stain Name: GTL=G-banding; QFQ=Q-banding; DAPI=DAPI-staining; CBL=C-banding; AGNOR=Silver-staining; NON=Non-banded The sum of Cells Analyzed and Cells Counted equals the total cells examined. 23 No clonal abnormality was apparent. Additional cytogenetic studies are reported separately. 24 RESULT: Kalie Doyle D.O. Test Performed by: [place] [id number] Dispensing Optician: Yang Eldridge M.D. Ph.D.; CLIA# [id number] 25 REFERENCE VALUE 0.3300-1.94 26 REFERENCE VALUE 0.5700-2.63 27 REFERENCE VALUE 0.2600-1.65 Test Performed by: [facility] [place] [address] Dispensing Optician: Yang Eldridge M.D. 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 Suggest Immunoglobulin Free Light Chain, Serum if clinically indicated. Call MLI within 7 days to add FLCP to the stored sample. Test Performed by: [facility] [place] [address] Dispensing Optician: Yang Eldridge M.D. Ph.D.; CLIA# [id number] 29 [id number] 30 SEE RESULT BELOW Name: SHERLY BARDALES : [address]: Albert Rizzo MD Acct: [id number] Unit: [id number] AGE: 84 Location: [facility] Re05/05/19 SEX: F Status: DEP REF SPEC: [id number] LILLIANA: 05/05/19 [facility] DR: Albert Rizzo MD REQ: [id number] RECD: 05/05/19 STATUS: JULIAN BECK DR: Kelton Gomez MD _ SOURCE: GAS ANTRUM SPDESC: ORDERED: Clotest COMMENTS: [id number] Procedure Result Reported Site Clotest Final 05/06/19728 ML Clotest Negative * ML - Main Lab . END OF REPORT DEPARTMENT OF PATHOLOGY, [address] [place] [address] Abisai Long M.D. Director ZEN # [id number] 31 [id number] 32 SEE RESULT BELOW Name: SHERLY BARDALES : [address]: Albert Rizzo MD Acct: [id number] Unit: [id number] AGE: 84 Location: [facility] Re05/05/19 SEX: F Status: DEP REF SPEC: [id number] LILLIANA: 05/05/19 [facility] DR: Albert Rizzo MD REQ: [id number] RECD: 05/05/19 STATUS: ABBIE BECK DR: Kelton Gomez MD _ ORDERED: LEVEL 4 COMMENTS: [id number] FINAL DIAGNOSIS Small bowel, duodenum, biopsy: -- Small bowel mucosa with normal villous architecture and no significant pathologic abnormality. CLINICAL HISTORY Nausea; vomiting; weight loss POST-OPERATIVE DIAGNOSIS EGD: esophagus - all normal; gastric - normal; biopsy; duodenum - normal; biopsy GROSS DESCRIPTION The specimen is received in formalin labeled, Duodenum Biopsy, and consists of two denis irregular soft tissue fragments measuring 0.3 x 0.2 x 0.2 cm and 0.6 x 0.2 x 0.1 cm which are submitted entirely in one cassette. Signed by and Reported on: Abisai Long MD 1435 END OF REPORT DEPARTMENT OF PATHOLOGY, [address] [place] [address] Abisai Long M.D. Director [facility] # [id number] Procedures Date Code Description Status 04/18/2019 41511 Electrocardiogram Complete Completed 01/16/2019 [id number] Bone Mineral Density Test Completed 01/12/2019 [id number] Colonoscopy Completed 07/16/2018 [id number] Mammogram Completed 07/15/2017 [id number] Mammogram Completed 06/11/2016 [id number] Mammogram Completed 08/08/2015 [id number] Colonoscopy Completed 04/07/2015 [id number] Mammogram Completed 04/02/2014 [id number] Mammogram Completed 03/31/2013 [id number] Mammogram Completed 03/17/2012 [id number] Mammogram Completed 02/16/2011 [id number] Mammogram Completed 12/26/2010 [id number] Colonoscopy Completed Medical Devices Description No Information Available Encounters Type Date Location Provider Dx Diagnosis Office Visit 09/11/2019 [facility] Office Kelton Gomez, C90.00 Multiple myeloma 11:20a M.D. not having achieved remission F31.81 Bipolar II disorder Office Visit 06/19/2019 10:00a [facility] Office Kelton Kendall Z23 Encounter for Mariam Gomez immunization C90.00 Multiple myeloma not having achieved remission Office Visit 05/07/2019 1:40p [facility] Office Kelton Kendall R63.4 Abnormal weight Mildred Gomez. loss Office Visit 04/18/2019 10:40a [facility] Kelton eKndall R63.4 Abnormal weight Rick GomezD. loss R11.0 Nausea R53.81 Other malaise Assessments Date Code Description Provider 10/16/2019 [id number] Greene 10/16/2019 R50.9 Fever, unspecified Jes Deleon, [facility] 09/11/2019 C90.00 Multiple myeloma not having achieved Kelton Gomez M.D. remission 09/11/2019 F31.81 Bipolar II disorder Kelton Gomez M.D. 06/19/2019 Z23 Encounter for immunization Kelton Gomez M.D. 06/19/2019 C90.00 Multiple myeloma not having achieved Kelton Gomez M.D. remission 05/07/2019 R63.4 Abnormal weight loss Kelton Gomez M.D. 04/18/2019 R63.4 Abnormal weight loss Kelton Gomez M.D. 04/18/2019 R11.0 Nausea Kelton Gomez M.D. 04/18/2019 R53.81 Other malaise Kelton Gomez M.D. Plan of Treatment Future Appointment(s):10/22/2019 3:00 pm - Maryjo Wolfe NP at Main B[facility]3201/11/2020 11:00 am - Kelton Gomez M.D. at [facility] [id number] - Jes Deleon, [id number] CoughNew Medication:Doxycycline Hyclate 100 mg - 1 by mouth twice a day for 10 daysComments:start antibiotics today, finish thempush fluids--pedialyte, gatorade-- should be available at the drugstoreRESk to use Tylenol and ibuprofen alternating for feverIf you can't control your fever, go to Emergency RoomIF you can't keep fluids in , go to Emergency Room If your breathing worsens, go to Emergency RoomFollow up:next / follow-upR50.9 Fever, unspecifiedAllComments:Medication Management Patient Understands medications he 's taking? Yes No Are there Barriers to Adherence? Yes No Has the patient been asked about herbal supplements and therapies, andOTC meds? Yes No As always, we strongly encourage a healthy diet and making physical activity a part of your every day life. If you have questions about how or where to start, please contact the office. Functional Status Description No Information Available Mental Status Description No Information Available Referrals Refer to Reason for Referral Status Appt Date Timmy Gamez Consult and treat. LT Scheduled 06/05/[address] [address] [phone] Timmy Gamez Consult and treat. LT Scheduled 06/05/2019 201 [place] [id number] [phone] Albert Rizzo MD EGD. LT Scheduled 04/29/[address] [place] [phone]
--- OUTSIDE RECORDS SUMMARY | 2019-11-09 06:56 | XMS REPORT | Continuity of Care Document ---
:1935 External Reference #:[id number] Author Name Maryjo Wolfe NP Address [address] [place] [address] Care Team Providers Name Role Phone Jose Tuttle MD - Neurological Care Team Information Compliance Project Manager Surgery Kelton Gomez MD - Family Medicine Care Team Information Compliance Project Manager [phone] Natalee Bruce - Dermatology Care Team Information Compliance Project Manager [phone] [facility] Pain Clinic - Interventional Pain Care Team Information Compliance Project Manager Medicine Donaldo Causey - Pain Care Team Information Compliance Project Manager [phone] Vini Parish - Urology Care Team Information Compliance Project Manager [phone] Jaycee Barton MD - Dermatology Care Team Information Compliance Project Manager [facility] Physical Therapy - Care Team Information Compliance Project Manager Physical Therapist Ranjith Cruz - Gastroenterology Care Team Information Compliance Project Manager [facility] Prosthetics And Orthotics - Care Team Information Compliance Project Manager Prosthetic[facility] Physical Care Team Information Compliance Project Manager Therapy - Physical Therapy Albert Rizzo MD - Gastroenterology Care Team Information Compliance Project Manager Problems Active Problems Provider Date Depressive disorder [...] Jes 10/16/2019 a day for 10 Adrienne, SU[employer] 100mg Tablets days Omeprazole Take One Capsule [...] CSundeep 08/27/2018 300mg By Mouth Three Aiden, [employer] GUIDANCE COUNSELOR Capsules Times A Day Alprazolam 1/2 -1 by mouth 60tabs Kelton FSundeep 07/15/2017 0.5mg three times a Mariam Gomez Tablets day as needed Revlimid 1 tab po x14 Unknown 25mg Capsules days then 1 week off then repeat Velcade Inj 1 injection Unknown weekly Dexamethasone 10 po every week Unknown 4mg Tablets Immunizations CPT Code Status Date Vaccine Lot # [id number] Given 06/19/2019 High-Dose, Influenza Virus Vacccine-fluzone 65 and [id number] older 26373 Given 07/02/2018 High-Dose, Influenza Virus Vacccine-fluzone 65 and [id number] older 34524 Given 06/24/2017 High-Dose, Influenza Virus Vacccine-fluzone 65 and [id number] older 49742 Given 07/06/2016 High-Dose, Influenza Virus Vacccine-fluzone 65 and [id number] older 86579 Given 07/25/2015 High-Dose, Influenza Virus Vacccine-fluzone 65 and [id number] older 56789 Given 11/25/2014 Pneumococcal Conjugate Vacc-13 [id number] 99265 Given 07/20/2014 High-Dose, Influenza Virus Vacccine-fluzone 65 and [id number] older 86009 Given 10/05/2013 High-Dose, Influenza Virus Vacccine-fluzone 65 and [id number] older 99654 Given 09/26/2012 Zostivax [id number] 67982 Given 07/01/2012 High-Dose, Influenza Virus Vacccine-fluzone 65 and [id number] older Q2038 Given 09/26/2011 Split Influenza Medicare: Fluzone 54459 Given 08/26/2009 DO Not Use Split Influenza Virus Vaccine [id number] 75752 Given 07/06/2008 Tdap Tetanus, W Pertussis [id number] 09539 Given 07/06/2008 DO Not Use Split Influenza Virus Vaccine [id number] 25669 Given 07/24/2007 Pneumococcal Immunization [id number] 97036 Given 07/22/2006 DO Not Use Split Influenza Virus Vaccine [id number] Vital Signs Date Vital Result Comment 10/22/2019 2:56pm BP Systolic 122 mmHg BP Diastolic 60 mmHg Heart Rate 94 /min Body Temperature 98.4 F Respiratory Rate 18 /min O2 % BldC Oximetry 96 % Height 58.5 inches 4'10.50" Weight 108.00 lb BMI (Body Mass Index) 22.2 kg/m2 10/16/2019 3:03pm BP Systolic 130 mmHg BP Diastolic 64 mmHg Heart Rate 100 /min Body Temperature 99.5 F Respiratory Rate 20 /min O2 % BldC Oximetry 94 % Height 58.5 inches 4'10.50" Weight 108.00 lb BMI (Body Mass Index) 22.2 kg/m2 Results Test Acquired Date Facility Test Result H/L Range Note CBC Auto Diff 10/19/2019 [facility] White Blood 8.1 10^3/uL Normal 3.5-10.8 Count Red Blood Count 4.06 10^6/uL Normal 3.70-4.87 Hemoglobin 12.4 g/dL Normal 12.0-16.0 Hematocrit 36 % Normal 35-47 Mean Corpuscular Volume 89 fL Normal 80-97 Mean Corpuscular Hemoglobin 31 pg Normal 27-31 Mean Corpuscular HGB Conc 35 g/dL Normal 31-36 Red Cell Distribution Width 17 % High 10-15 Platelet Count 184 10^3/uL Normal 150-450 Mean Platelet Volume 9.0 fL Normal 7.4-10.4 Abs Neutrophils 4.6 10^3/uL Normal 1.5-7.7 Abs Lymphocytes 1.4 10^3/uL Normal 1.0-4.8 Abs Monocytes 0.7 10^3/uL Normal 0-0.8 Abs Eosinophils 1.3 10^3/uL High 0-0.6 Abs Basophils 0.1 10^3/uL Normal 0-0.2 Abs Nucleated RBC 0.0 10^3/uL Granulocyte % 57.2 % Lymphocyte % 16.6 % Monocyte % 8.1 % Eosinophil % 16.6 % Basophil % 1.5 % Nucleated Red Blood Cells % 0.0 Comp Metabolic Panel 10/19/2019 [facility] Sodium 138 mmol/L Normal 135-145 Potassium 3.1 mmol/L Low 3.5-5.0 Chloride 100 mmol/L Low 101-111 Co2 Carbon Dioxide 29 mmol/L Normal 22-32 Anion Gap 9 mmol/L Normal 2-11 Glucose 119 mg/dL High 70-100 Blood Urea Nitrogen 8 mg/dL Normal 6-24 Creatinine 0.55 mg/dL Normal 0.51-0.95 BUN/Creatinine Ratio 14.5 Normal 8-20 Calcium 7.9 mg/dL Low 8.6-10.3 Total Protein 6.1 g/dL Low 6.4-8.9 Albumin 3.7 g/dL Normal 3.2-5.2 Globulin 2.4 g/dL Normal 2-4 Albumin/Globulin Ratio 1.5 Normal 1-3 Total Bilirubin 0.50 mg/dL Normal 0.2-1.0 Alkaline Phosphatase 56 U/L Normal 34-104 Alt 33 U/L Normal 7-52 Ast 31 U/L Normal 13-39 Egfr Non- 105.8 >60 Egfr 128.0 >60 1 Laboratory test 10/19/2019 [facility] Magnesium 1.8 mg/dL Low 1.9-2.7 finding Flu A&B (Fma) 10/16/2019 [facility] Influenza A negative (607)- - Influenza B negative CBC Auto Diff 10/12/2019 [facility] White Blood Count 6.8 10^3/uL Normal 3.5- [...] Cells % 0.0 Comp Metabolic Panel 10/12/2019 [facility] Sodium 140 mmol/L Normal 135-145 Potassium 3.6 [...] Egfr Non- 99.5 >60 Egfr 120.4 >60 2 [place]/Lambda Free Light 10/05/2019 [facility] [place] Free Light 14.4 mg/dL Abnormal 3 Chains Ser Chain Lambda Free Light Chain 0.8670 mg/dL 4 [place]/Lambda Free Light Chain 16.6 Abnormal 5 Comp Metabolic Panel 10/05/2019 [facility] Sodium 140 mmol/L Normal 135-145 Potassium 3.6 [...] Egfr Non- 88.8 >60 Egfr 107.5 >60 6 CBC Auto Diff 10/05/2019 [facility] White Blood Count 6.6 10^3/uL Normal 3.5- [...] Blood Cells % 0.0 CBC Auto Diff 09/28/2019 [facility] White Blood Count 5.8 10^3/uL Normal 3.5- [...] Cells % 0.0 Comp Metabolic Panel 09/28/2019 [facility] Sodium 140 mmol/L Normal 135-145 Potassium 3.4 [...] Egfr Non- 93.9 >60 Egfr 113.6 >60 7 CBC Auto Diff 09/21/2019 [facility] White Blood Count 5.3 10^3/uL Normal 3.5- [...] Cells % 0.0 CBC Auto Diff 09/14/2019 [facility] White Blood Count 4.7 10^3/uL Normal 3.5- [...] Cells % 0.1 Comp Metabolic Panel 09/14/2019 [facility] Sodium 142 mmol/L Normal 135-145 Potassium 4.0 [...] Egfr Non- 97.6 >60 Egfr 118.1 >60 8 CBC Auto Diff 09/07/2019 [facility] White Blood Count 8.0 10^3/uL Normal 3.5- [...] Cells % 0.0 Comp Metabolic Panel 09/07/2019 [facility] Sodium 142 mmol/L Normal 135-145 Potassium 3.8 [...] Egfr Non- 95.7 >60 Egfr 115.8 >60 9 Comp Metabolic Panel 08/31/2019 [facility] Sodium 141 mmol/L Normal 135-145 Potassium 3.9 [...] Egfr Non- 103.6 >60 Egfr 125.4 >60 10 CBC Auto Diff 08/31/2019 [facility] White Blood Count 4.6 10^3/uL Normal 3.5- [...] Blood Cells % 0.1 Laboratory test 08/25/2019 [facility] Point of Care 108 mg/dL High 70-100 11 finding Glucose CBC Auto Diff 08/24/2019 [facility] White Blood Count 4.5 10^3/uL Normal 3.5- [...] Cells % 0.1 Comp Metabolic Panel 08/24/2019 [facility] Sodium 140 mmol/L Normal 135-145 Potassium 4.1 [...] Egfr Non- 90.5 >60 Egfr 109.5 >60 12 Leukemia/Lymphoma Phenot 07/13/2019 [facility] Path Interpretation 2-8 Marker TNP Path Interpret 9-15 Marker (SEE NOTE) 13 Path Interpret > 16 Marker TNP Plasma Cell Profliferative 07/13/2019 [facility] Plasma Cell Dis Res Abnormal Disorder Summary Plasma Cell Prolif Specimen Bone Marrow Plasma Cell Referral Reason multiple myeloma <SEE NOTE> 14 Plasma Cell Prolif Dis Method See Comment 15 Plasma Cell Dis Result Table See Comment 16 Plasma Cell Prolif Dis Results See Comment 17 Plasma Cell Dis Interpretation See Comment 18 Plasma Cell Dis Disclaimer See Comment 19 Plasma Cell Dis Released By See Comment 20 Bone Marrow Chromosomes 07/13/2019 [facility] BM Result Summary Normal BM Chromosome Specimen Bone Marrow BM Referral Reason multiple myeloma <SEE NOTE> 21 BM Chromosome Method See Comment 22 BM Chromo Banding Method See Comment 23 BM Cromosome Results 46,XX[20] BM Chromosome Interpretation See Comment 24 Released By See Comment 25 CBC Auto Diff 07/13/2019 [facility] White Blood Count 4.8 10^3/uL Normal 3.5- [...] Red Blood Cells % 0.1 Xray 06/08/2019 [facility] MRI Thoracic Spine W/Wo Contrast <pending> [phone] Mammography Screening, Bilateral; 2-View Each Breast <pending> CBC Auto Diff 06/05/2019 [facility] White Blood Count 6.0 10^3/uL Normal 3.5- [...] % Nucleated Red Blood Cells % 0.1 [place]/Lambda Free Light 06/05/2019 [facility] [place] Free Light 221 mg/dL Abnormal 26 Chains Ser Chain Lambda Free Light Chain 0.1280 mg/dL Abnormal 27 [place]/Lambda Free Light Chain >1000 Abnormal 28 Protein Electrophoresis 06/05/2019 [facility] Total Protein(Pep) 6.7 g/dL 6.3 - 7.9 Albumin 3.7 g/dL 3.4-4.7 Alpha-1 Globulin 0.2 g/dL 0.1-0.3 Alpha-2 Globulin 1.3 g/dL Abnormal 0.6-1.0 Beta Globulin 1.1 g/dL 0.7-1.2 Gamma Globulin 0.4 g/dL Abnormal 0.6-1.6 Albumin/Globulin Ratio 1.21 Impression See Comment 29 Laboratory test 05/05/2019 [facility] Clotest SEE RESULT BELOW 30, 31 finding Laboratory test 05/05/2019 [facility] Surgical Pathology SEE RESULT BELOW 32 , 33 finding Order 1 Because ethnic data is [...] 5 REFERENCE VALUE 0.2600-1.65 Test Performed by: [facility] [address] [place] [address] Commercial Announcer: Yang Eldridge M.D. Ph.D.; CLIA# [id number] 6 Because ethnic data is not always [...] 5 Kidney failure <15 (or dialysis) 10 Because ethnic data is not always readily [...] 15-29 5 Kidney failure <15 (or dialysis) 11 Weld Fitter: [id number] 12 Because ethnic data is not always readily [...] 15-29 5 Kidney failure <15 (or dialysis) 13 FINAL DIAGNOSIS: Specimen Source: Bone marrow Flow [...] Electronically signed by: Abisai Long MD 07/15/19 5713 Technical component performed by: [place] [id number] Anesthesiology Resident: Yang Eldridge II, MD, PhD. 14 multiple myeloma/MM 15 Locus and probes [Strategy;#Nuclei;Class] 1p36.3(TP73),1q22 [COPY#;50;LDT] 3CEN(D3Z1),7CEN(D7Z1) [COPY#;50;ASR] 8q24(5'MYC,3'MYC) [BAP;50;ASR] 9CEN(D9Z1),15CEN(D15Z4) [COPY#;50;ASR] 11q13(CCND1-XT),14q32(IGH-XT) [DFISH;50;ASR] 13q14(RB1),13q34(LAMP1) [COPY#;50;ASR] 14q32(3'IGH,5'IGH) [BAP;50;LDT] 17p13.1(TP53),17CEN(D17Z1) [COPY#;50;ASR] Probe strategies include: DFISH=dual color, double fusion; BAP=break-apart probe; COPY#=region gain and loss. 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 At diagnosis, the combination of monosomy 13 and t(11;14) has uncertain prognostic significance in multiple myeloma (Hirsch et al., Blood 101:3841-4614, 2003). The prognostic significance for these abnormalities in MGUS, amyloidosis, or smoldering multiple myeloma is unknown. Additional cytogenetic studies are reported separately. 19 Applicable to Analyte Specific Reagent (ASR) and Laboratory Developed Tests (LDT). This test was developed and its performance characteristics determined by [facility] in a manner consistent with CLIA requirements. It has not been cleared or approved by the U.S. Food and Drug Administration. This FISH test does not rule out other chromosome abnormalities. 20 RESULT: Apryl Haskins M.D. Test Performed by: [facility] - [address] [address] Commercial Announcer: Yang Eldridge M.D. Ph.D.; CLIA# [id number] 21 multiple myeloma/MM 22 RESULT: Culture without mitogens 23 Band Resolution: <400 Stain Name Cells Analyzed Cells Karyograms Counted Prepared GTL 20 0 2 Total 20 0 2 Murrell to Stain Name: GTL=G-banding; QFQ=Q-banding; DAPI=DAPI-staining; CBL=C-banding; AGNOR=Silver-staining; NON=Non-banded The sum of Cells Analyzed and Cells Counted equals the total cells examined. 24 No clonal abnormality was apparent. Additional cytogenetic studies are reported separately. 25 RESULT: Kalie Doyle D.O. Test Performed by: [facility] [place] [place] [address] Commercial Announcer: Yang Eldridge M.D. Ph.D.; CLIA# [id number] 26 REFERENCE VALUE 0.3300-1.94 27 REFERENCE VALUE 0.5700-2.63 28 REFERENCE VALUE 0.2600-1.65 Test Performed by: [place] [address] Commercial Announcer: Yang Eldridge M.D. 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 Suggest Immunoglobulin Free Light Chain, Serum if clinically indicated. Call [facility] within 7 days to add FLCP to the stored sample. Test Performed by: [place] [address] Commercial Announcer: Yang Eldridge M.D. Ph.D.; CLIA# [id number] 30 [id number] 31 SEE RESULT BELOW Name: SHERLY BARDALES : [address]: Albert Rizzo MD Acct: [id number] Unit: [id number] AGE: 84 Location: ENDOCEC Re05/05/19 SEX: F Status: DEP REF SPEC: [id number] LILLIANA: 05/05/19-[address] [facility] [address]: Albert Rizzo MD REQ: [id number] RECD: 05/05/19-1329 STATUS: COMP OTHR DR: Kelton Gomez MD _ SOURCE: GAS ANTRUM SPDESC: ORDERED: Clotest COMMENTS: [id number] Procedure Result Reported Site Clotest Final 05/06/19- 728 ML Clotest Negative * ML - Main Lab . END OF REPORT DEPARTMENT OF PATHOLOGY, [address] [place] [address] Abisai Long M.D. Director [facility] # [id number] 32 [id number] 33 SEE RESULT BELOW Name: SHERLY BARDALES : [address]: Albert Rizzo MD Acct: [id number] Unit: [id number] AGE: 84 Location: ENDOCEC Re05/05/19 SEX: F Status: DEP REF SPEC: [id number] LILLIANA: 05/05/[address] [facility] [address]: Albert Rizzo MD REQ: [id number] RECD: 05/05/19 STATUS: ABBIE BECK DR: Kelton Gomez MD _ ORDERED: LEVEL 4 COMMENTS: [id number] FINAL DIAGNOSIS Small bowel, duodenum, biopsy: -- [...] 1435 END OF REPORT DEPARTMENT OF PATHOLOGY, [address] [place] [address] Abisai Long M.D. Director [facility] # [id number] Procedures Date Code Description Status 01/16/2019 [id number] Bone Mineral Density Test Completed 01/12/2019 21256582 Colonoscopy Completed 07/16/2018 18897741 Mammogram Completed 07/15/2017 24878854 Mammogram Completed 06/11/2016 81933906 Mammogram Completed 08/08/2015 32057387 Colonoscopy Completed 04/07/2015 61592482 Mammogram Completed 04/02/2014 21267135 Mammogram Completed 03/31/2013 65257897 Mammogram Completed 03/17/2012 63583354 Mammogram Completed 02/16/2011 20856187 Mammogram Completed 12/26/2010 30503391 Colonoscopy Completed Medical Devices Description No Information Available Encounters Type Date Location Provider Dx Diagnosis Office Visit 09/11/2019 [facility] Office Kelton Gomez, C90.00 Multiple myeloma 11:20a M.D. not having achieved remission F31.81 Bipolar II disorder Office Visit 06/19/2019 10:00a [facility] Kelton Kendall Z23 Encounter for Mariam Gomez immunization C90.00 Multiple myeloma not having achieved remission Office Visit 05/07/2019 1:40p Main Office Kelton Gomez, R63.4 Abnormal weight M.D. loss Assessments Date Code Description Provider 10/22/2019 R05 Cough Maryjo Wolfe, [employer] COUNSELOR 10/22/2019 R50.9 Fever, unspecified Maryjo Wolfe, NOLAN 10/22/2019 C90.00 Multiple myeloma not having achieved Maryjo Wolfe, NOLAN remission 10/16/2019 R05 Cough Jes Deleon, [employer] 10/16/2019 R50.9 Fever, unspecified Jes Deleon, [employer] 09/11/2019 C90.00 Multiple myeloma not having achieved Kelton Gomez M.D. remission 09/11/2019 F31.81 Bipolar II disorder Kelton Gomez M.D. 06/19/2019 Z23 Encounter for immunization Kelton Gomez M.D. 06/19/2019 C90.00 Multiple myeloma not having achieved Kelton Gomez M.D. remission 05/07/2019 R63.4 Abnormal weight loss Kelton Gomez M.D. Plan of Treatment Future Appointment(s):01/11/2020 11:00 am - Kelton Gomez M.D. at [facility] Ismjch1610/22/2019 - Maryjo Wolfe, NPR05 CoughComments:Improved -- please continue treatment as planned. Your cough should improve on its own over the course of weeks. Any sudden worsening should prompt a follow-up exam here.R50.9 Fever, tsqrznoankvI41.00 Multiple myeloma not having achieved remissionComments: Continue to follow-up with Dr. Gamez as planned.AllComments:1. Patient has been queried about patient's goals/preferences and functional/lifestyle goals at relevant visits. If relevant, describe: Has been discussed, noted above2. Treatment goals as explainedto the patient: see above3. Are there barriers to meeting treatment goals? Yes If Yes, please describe: Barriers include possible insurance limits, disease process, and difficulty with lifestyle changes4. Self-Management goals as described to the patient: Yes, see above As always, we strongly encourage a healthy diet and making physical activity a part of your every day life. If you have questions about how or where to start, please contact the office. Functional Status Description No Information Available Mental Status Description No Information Available Referrals Refer to Reason for Referral Status Appt Date Timmy Gamez Consult and treat. LT Scheduled 06/05/2019 201 [facility] Remind [address] [address] [phone] Timmy Gamez Consult and treat. LT Scheduled 06/05/[address] [place] [address] [address] [phone]
[2019-11-09] MEDS ORDERED: NS 0.9% 1000 ML** 1,000 ML IV ONE (07:11)
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
--- NOTE | 2019-11-09 07:24 | ED ---
Complex/Multi-Sys Presentation - HPI Summary HPI Summary: Pt. is an 84 y.o female who presents to the ER for chills, one episode of vomiting and fatigue that started last night. Patient is currently receiving chemotherapy for multiple myeloma. Patient notes mild diarrhea and stiff neck. She denies headache, vision changes, chest pain, shortness of breath, cough, sore throat, abdominal pain, dysuria. Symptoms are moderate in severity. Patient states she felt chills and clammy last night but did not take her temperature. She has not taken any Tylenol or Motrin for cold medication. No current modifying factors. - History Of Current Complaint Chief Complaint: EDFluSymptoms Time Seen by Provider: 11/09/19 07:00 Hx Obtained From: Patient - Allergies/Home Medications Allergies/Adverse Reactions: Allergies Allergy/AdvReac Type Severity Reaction Status Date / Time baclofen Allergy Intermediate Rash Verified 11/09/19 09:46 propoxyphene Allergy Intermediate Rash Verified 11/09/19 09:46 [From Michael] Home Medications: Home Medications Bortezomib [Velcade] 3.5 mg INJ WEEKLY 11/09/19 [History Confirmed 11/09/19] Dexamethasone TAB* [Decadron TAB*] 40 mg PO WEEKLY 11/09/19 [History Confirmed 11/09/19] Gabapentin CAP(*) [Neurontin 300 CAP(*)] 300 mg PO TID 11/09/19 [History Confirmed 11/09/19] Lenalidomide(NF) [Revlimid(NF)] 25 mg PO DAILY 11/09/19 [History Confirmed 11/09] PMH/Surg Hx/FS Hx/Imm Hx Previously Healthy: Yes Endocrine/Hematology History: Denies: Hx Diabetes Cardiovascular History: Denies: Hx Hypertension - pt denies, Hx Pacemaker/ICD Respiratory History: Denies: Hx Asthma GI History: Reports: Hx Gastroesophageal Reflux Disease - occas zantac History: Denies: Hx Dialysis, Hx Renal Disease Musculoskeletal History: Reports: Hx Arthritis - BACK, SHOULDERS, Hx Back Problems - S/P lumbar laminectomies 02/01 Sensory History: Reports: Hx Contacts or Glasses Denies: Hx Hearing Aid Opthamlomology History: Reports: Hx Contacts or Glasses Neurological History: Reports: Hx Migraine - PRN HEADACHES- Psychiatric History: Reports: Hx Anxiety, Hx Depression - Being followed by family MD taking med Denies: Hx Panic Disorder - Cancer History Cancer Type, Location and Year: Basal cell nose Hx Chemotherapy: No Hx Radiation Therapy: No - Surgical History Surgery Procedure, Year, and Place: LEFT ANKLE SURGERY 06/01 [facility] [place]. LAMINECTOMY L2 -L4 02-21-12 AT [facility] [place]. X2. Excision Basal cell carcinoma face 12/03 [facility] [place] Hx Anesthesia Reactions: No - Immunization History Date of Tetanus Vaccine: "long time ago" Date of Influenza Vaccine: 2016 Infectious Disease History: No Infectious Disease History: Denies: History Other Infectious Disease, Traveled Outside the [place] in Last 30 Days - Family History Known Family History: Positive: Cardiac Disease - mother, Hypertension - mother , Non-Contributory Family History: no cardio vascular issues reported - Social History Occupation: Retired Lives: With Family Alcohol Use: Occasionally Hx Substance Use: Yes Substance Use Type: Reports: Prescribed Substance Use Comment - Amount & Last Used: hydrocodone Hx Tobacco Use: Yes Smoking Status (MU): Former Smoker Review of Systems - ROS Summary Review of Systems Summary: ALPRAZolam TAB* [Xanax TAB*] 0.5 mg PO BID 08/21/12 [History Confirmed 05/05/19] QUEtiapine TAB* [Seroquel 25 MG TAB*] 50 mg PO BEDTIME 08/21/12 [History Confirmed 05/04/19] HYDROcodone/ACETAMIN 5-325 MG* [[place] 5-325 TAB*] 1 tab PO Q6H PRN 04/26/14 [ History Confirmed 05/04/19] Naproxen TAB* [Naprosyn 250 mg TAB*] 500 mg PO Q8H PRN #15 tab 11/18/17 [Rx Confirmed 05/04/19] Zolpidem CR (NF) [Ambien CR (NF)] 1 - 2 tab PO BEDTIME PRN 11/18/17 [History Confirmed 05/04/19] Diclofenac 1% GEL (NF) [Voltaren 1% GEL (NF)] 1 applic TOPICAL QID PRN 05/04/19 [History Confirmed 05/04/19] Omeprazole CAP (NF) [Prilosec CAP* 20 MG] 20 mg PO DAILY 05/04/19 [History Confirmed 05/04/19] Ondansetron TAB* [Zofran 4 MG Tab*] 4 mg PO Q6H PRN 05/04/19 [History Confirmed 05/04/19] traMADol TAB* [Ultram*] 50 mg PO Q6HR PRN 05/04/19 [History Confirmed 05/04/19] Positive: Chills. Negative: Fever Eyes: Negative ENT: Negative Cardiovascular: Negative Negative: Chest Pain Respiratory: Negative Negative: Shortness Of Breath, Cough Positive: Vomiting, Diarrhea, Nausea. Negative: Abdominal Pain Genitourinary: Negative Negative: dysuria, flank pain Musculoskeletal: Negative Skin: Negative Neurological/Mental Status: Negative All Other Systems Reviewed And Are Negative: Yes Physical Exam Triage Information Reviewed: Yes Vital Signs On Initial Exam: Initial Vitals Temp Pulse Resp BP Pulse Ox 98.1 F 91 16 141/78 93 11/09/19 06:47 11/09/19 06:47 11/09/19 06:47 11/09/19 06:47 11/09/19 06:47 Vital Signs Reviewed: Yes Appearance: Positive: Well-Appearing - Pt. lying in bed in NAD. Family member present. Skin: Positive: Warm, Dry Head/Face: Positive: Normal Head/Face Inspection Eyes: Positive: Normal, EOMI, ZEB ENT: Positive: Pharynx normal, TMs normal Neck: Positive: Supple, Nontender. Negative: Nuchal Rigidity Respiratory/Lung Sounds: Positive: Clear to Auscultation, Breath Sounds Present. Negative: Rales, Rhonchi, Wheezes Cardiovascular: Positive: Normal, RRR Abdomen Description: Positive: Nontender, Soft. Negative: CVA Tenderness (R), CVA Tenderness (L) Neurological: Positive: Normal, CN Intact II-III Psychiatric: Positive: Affect/Mood Appropriate Procedures - Sedation Patient Received Moderate/Deep Sedation with Procedure: No Diagnostics - Vital Signs Vital Signs Temp Pulse Resp BP Pulse Ox 11/09/19 06:47 98.1 F 91 16 141/78 93 - Laboratory Lab Results: Lab Results 11/09/19 Range/Units 07:10 Influenza A (Rapid) Pending Influenza B (Rapid) Pending Result Diagrams: 11/09/19 07:32 11/09/19 07:32 Lab Statement: Any lab studies that have been ordered have been reviewed, and results considered in the medical decision making process. Complex Multi-Symp Course/Dx Course Of Treatment: Patient presenting with one episode of vomiting, chills and mild diarrhea. She is afebrile emergency Department with stable vital signs. Nontoxic appearing. We'll obtain basic workup including labs, blood cultures, chest x-ray and urinalysis. Patient started IV fluids. Labs unremarkable other than mildly low K and lactic acid of 2.2. Pt. given IV fluids. On re-exam pt. resting comfortably. Case discussed with oncology PAC, Tad, she feels pt. can still receive chemo based on labs. Pt. agreeable. Will dc to oncology apt. Will return to ER if sxs change or worsen. - Diagnoses Provider Diagnoses: Nausea & vomiting Discharge ED - Sign-Out/Discharge Documenting (check all that apply): Patient Departure - Discharge Plan Condition: Improved Disposition: HOME Patient Education Materials: Acute Nausea and Vomiting (ED) Referrals: Timmy Gamez MD [Medical Doctor] - Kelton Gomez MD [Primary Care Provider] - Additional Instructions: Please go to your schedule oncology visit today at 0930 am Return to ER for fever, uncontrollable vomiting, or new/worsening symptoms or concerns - Billing Disposition and Condition Condition: IMPROVED Disposition: Home
[2019-11-09 07:48] LABS: ABS Basophils 0.1 10^3/ul (0-0.2); ABS Eosinophils 0.1 10^3/ul (0-0.6); ABS Lymphocytes 0.9 10^3/ul (1.0-4.8); ABS Monocytes 0.7 10^3/ul (0-0.8); ABS Neutrophils 4.5 10^3/ul (1.5-7.7); Hematocrit 37 % (35-47); Hemoglobin 12.4 g/dL (12.0-16.0); Lymphocyte % 14.5 %; Mean Corpuscular HGB Conc 34 g/dL (31-36); Mean Corpuscular Hemoglobin 30 pg (27-31); Mean Corpuscular Volume 88 fL (80-97); Mean Platelet Volume 8.6 fL (7.4-10.4); Nucleated Red Blood Cells % 0.1; Platelet Count 186 10^3/uL (150-450); Red Blood Count 4.16 10^6 /uL (3.70-4.87); Red Cell Distribution Width 17 % (10-15); White Blood Count 6.3 10^3/uL (3.5-10.8)
[2019-11-09 07:59] LABS: Albumin 3.9 g/dL (3.2-5.2); Albumin/Globulin Ratio 1.6 (1-3); BUN/Creatinine Ratio 16.7 (8-20); C Reactive Protein 1.21 mg/L (<8.01); Calcium 8.1 mg/dL (8.6-10.3); EGFR African American 149.8 (>60); EGFR Non-African American 123.8 (>60); Globulin 2.4 g/dL (2-4); Potassium 3.3 mmol/L (3.5-5.0); Total Bilirubin 0.6 mg/dL (0.2-1.0); Total Protein 6.3 g/dL (6.4-8.9)
[2019-11-09 07:59] LABS: Influenza A Molecular Negative (Negative); Influenza B Molecular Negative (Negative)
[2019-11-09] MEDS ORDERED: Potassium Chlor TAB* 20 MEQ TAB.ER PO ONE (08:08)
[2019-11-09 08:29] LABS: Urine Appearance Cloudy; Urine Bilirubin Negative (Negative); Urine Blood Negative (Negative); Urine Color Yellow; Urine Glucose Negative (Negative); Urine Ketones Negative (Negative); Urine Nitrite Negative (Negative); Urine Protein Negative (Negative); Urine Specific Gravity 1.013 (1.010-1.030); Urine Urobilinogen Negative (Negative)
[2019-11-09 09:44] VITALS: BP 155/79
== END 2019-11-09 09:05 | disposition home or self-care (01) ==
LOC: ED 06:46
DX: R11.2 Nausea with vomiting, unspecified (principal); C90.00 Multiple myeloma not having achieved remission; R68.83 Chills (without fever); R53.83 Other fatigue; R19.7 Diarrhea, unspecified; M43.6 Torticollis; K21.9 Gastro-esophageal reflux disease without esophagitis; F41.9 Anxiety disorder, unspecified; F32.9 Major depressive disorder, single episode, unspecified; Z88.5 Allergy status to narcotic agent; Z88.8 Allergy status to other drugs, medicaments and biological substances; Z87.891 Personal history of nicotine dependence
CPT/HCPCS: 36415; 71045; 80053; 81003; 83605; 85025; 86140; 87040; 96360; 99284; A9270-GY

== ENCOUNTER 2020-09-13 17:19 | Inpatient (IN) ==
[2020-09-13] MEDS ORDERED: Morphine 4 MG/ML VIAL (1 ml) IV ONE ×2 (17:51→20:01)
[2020-09-13] MEDS ORDERED: Ondansetron 4 mg VIAL 2 MG/ML 2 ml VIAL IV ONE (17:51)
[2020-09-13 19:09] LABS: Activated Partial Thrombo Time 17.6 seconds (26.0-38.0); INR 1.1 (0.82-1.09)
[2020-09-13 19:14] LABS: Albumin 3.9 g/dL (3.2-5.2); BUN/Creatinine Ratio 30.2 (8-20); Calcium 9.2 mg/dL (8.6-10.3); EGFR African American 133.3 (>60); EGFR Non-African American 110.2 (>60); Potassium 3.3 mmol/L (3.5-5.0); Total Bilirubin 0.3 mg/dL (0.2-1.0); Total Protein 5.9 g/dL (6.4-8.9)
[2020-09-13 19:23] LABS: ABS Eosinophils 0.2 10^3/ul (0-0.6); ABS Lymphocytes 1.3 10^3/ul (1.0-4.8); ABS Monocytes 0.9 10^3/ul (0-0.8); ABS Neutrophils 7.3 10^3/ul (1.5-7.7); Eosinophil % 1.7 %; Hematocrit 38 % (35-47); Hemoglobin 12.8 g/dL (12.0-16.0); Lymphocyte % 13.4 %; Mean Corpuscular HGB Conc 34 g/dL (31-36); Mean Corpuscular Hemoglobin 31 pg (27-31); Mean Corpuscular Volume 91 fL (80-97); Nucleated Red Blood Cells % 0.1; Red Blood Count 4.19 10^6 /uL (3.70-4.87); Red Cell Distribution Width 16 % (10-15); White Blood Count 9.7 10^3/uL (3.5-10.8)
[2020-09-13 20:00] LABS: Platelet Count 158 10^3/uL (150-450)
[2020-09-13] MEDS ORDERED: Magnesium Hydroxide LIQ 30 ML UDC PO PRN (21:21)
[2020-09-13] MEDS: Morphine 2 MG/ML SYRINGE IV PRN (23:04)
[2020-09-13] MEDS ORDERED: Ondansetron 4 mg VIAL 2 MG/ML 2 ml VIAL IV PRN (23:56)
[2020-09-14] MEDS: Heparin 5000 UNITS/ML 1 mL VIAL SUBCUT SCH ×2 (00:04→06:40)
[2020-09-14] MEDS ORDERED: Ondansetron 4 mg VIAL 2 MG/ML 2 ml VIAL IV PRN ×2 (03:27→17:33)
[2020-09-14 06:24] LABS: ABS Lymphocytes 0.7 10^3/ul (1.0-4.8); ABS Monocytes 0.7 10^3/ul (0-0.8); ABS Neutrophils 5.8 10^3/ul (1.5-7.7); Eosinophil % 0.1 %; Hematocrit 36 % (35-47); Hemoglobin 12.6 g/dL (12.0-16.0); Lymphocyte % 9.1 %; Mean Corpuscular HGB Conc 35 g/dL (31-36); Mean Corpuscular Hemoglobin 31 pg (27-31); Mean Corpuscular Volume 89 fL (80-97); Mean Platelet Volume 7.1 fL (7.4-10.4); Platelet Count 171 10^3/uL (150-450); Red Cell Distribution Width 16 % (10-15); White Blood Count 7.3 10^3/uL (3.5-10.8)
[2020-09-14 06:32] LABS: INR 1.11 (0.82-1.09)
[2020-09-14 06:41] LABS: BUN/Creatinine Ratio 32.7 (8-20); Calcium 9.2 mg/dL (8.6-10.3); EGFR African American 145.9 (>60); EGFR Non-African American 120.6 (>60); Potassium 3.7 mmol/L (3.5-5.0)
[2020-09-14] MEDS ORDERED: LENALIDOMIDE 25 MG PO SCH (09:00)
[2020-09-14] MEDS: Lactated Ringers 1000 ml BAG 1,000 ML IV SCH ×3 (09:15→22:36)
[2020-09-14 09:58] LABS: Urine Appearance Cloudy; Urine Bilirubin Negative (Negative); Urine Blood 1+ (Negative); Urine Color Yellow; Urine Glucose 1+(50 mg/dL) (Negative); Urine Ketones Trace (Negative); Urine Nitrite Negative (Negative); Urine Protein 1+(30 mg/dL) (Negative); Urine Specific Gravity 1.024 (1.010-1.030); Urine Urobilinogen Negative (Negative)
[2020-09-14] MEDS: Morphine 2 MG/ML SYRINGE IV PRN (09:59)
[2020-09-14 10:06] LABS: Urine Bacteria Absent (Absent); Urine Red Blood Cell 3+(>10/hpf) (Absent); Urine Squamous Epithelial Cell Present (Absent); Urine White Blood Cell Trace(0-5/hpf) (Absent)
[2020-09-14] MEDS ORDERED: Sodium Citrate/Citric Acid LIQ 15 ML UDC PO ONE (13:00)
[2020-09-14] MEDS ORDERED: Sodium Citrate/Citric Acid LIQ 15 ML UDC ONE (13:34)
[2020-09-14] MEDS ORDERED: ceFAZolin 2 GM PREMIX 2 GM/50 ML BAG ONE (13:48)
[2020-09-14] MEDS ORDERED: Bupivacaine 0.5% SDV PF 30ML VIAL ONE (13:49)
[2020-09-14] MEDS ORDERED: Propofol 10 MG/ML 20 ML BTL ONE (14:11)
[2020-09-14] MEDS ORDERED: Dexamethasone IV 4 MG/ML VIAL 1 ml VIAL ONE (14:11)
[2020-09-14] MEDS ORDERED: fentaNYL 100 mcg/2 ml 50 MCG/ML VIAL ONE (14:11)
[2020-09-14] MEDS ORDERED: Ondansetron 4 mg VIAL 2 MG/ML 2 ml VIAL ONE (14:11)
[2020-09-14] MEDS ORDERED: Rocuronium 50 mg VIAL 10 mg/ml 5 ml VIAL (50 mg) ONE (14:11)
[2020-09-14] MEDS ORDERED: Lidocaine 2% PF 5 ML VIAL ONE (14:14)
[2020-09-14] MEDS ORDERED: HYDROmorphone 1 MG/1 ML SYRINGE ONE (15:05)
[2020-09-14] MEDS ORDERED: Acetaminophen IV 1 GM/100ML 1,000 MG/100 ML VIAL IVPB PRN (17:33)
[2020-09-14] MEDS ORDERED: HYDROmorphone 1 MG/1 ML SYRINGE IV PRN (17:33)
[2020-09-14] MEDS ORDERED: Naloxone 0.4 mg VIAL 0.4 mg/ml 1 ml VIAL IV PRN (17:33)
[2020-09-14] MEDS ORDERED: fentaNYL 100 mcg/2 ml 50 MCG/ML VIAL IV PRN (17:33)
[2020-09-14] MEDS: ceFAZolin 1 GM Q8H (ADVAN) IVPB SCH (20:54)
[2020-09-15] MEDS: ceFAZolin 1 GM Q8H (ADVAN) IVPB SCH ×2 (04:45→12:29)
[2020-09-15 06:02] LABS: Hematocrit 23 % (35-47); Hemoglobin 7.7 g/dL (12.0-16.0); Mean Corpuscular HGB Conc 34 g/dL (31-36); Mean Corpuscular Hemoglobin 30 pg (27-31); Mean Corpuscular Volume 90 fL (80-97); Mean Platelet Volume 7.3 fL (7.4-10.4); Platelet Count 124 10^3/uL (150-450); Red Blood Count 2.55 10^6 /uL (3.70-4.87); Red Cell Distribution Width 15 % (10-15); White Blood Count 4.9 10^3/uL (3.5-10.8)
[2020-09-15 06:26] LABS: Anion Gap 6 mmol/L (2-11); BUN/Creatinine Ratio 22.2 (8-20); Blood Urea Nitrogen 12 mg/dL (6-24); CO2 Carbon Dioxide 28 mmol/L (22-32); Calcium 7.8 mg/dL (8.6-10.3); Chloride 104 mmol/L (101-111); EGFR African American 130.5 (>60); EGFR Non-African American 107.8 (>60); Glucose 137 mg/dL (70-100); Magnesium 1.8 mg/dL (1.9-2.7); Potassium 3.5 mmol/L (3.5-5.0); Sodium 138 mmol/L (135-145)
[2020-09-15] MEDS: Lactated Ringers 1000 ml BAG 1,000 ML IV SCH (07:20)
[2020-09-15] MEDS ORDERED: Magnesium Sulfate IV 1GM/100ML 1 GM/100 ML BAG IV ONE (08:23)
[2020-09-15] MEDS: Enoxaparin 40 MG/0.4 ML SYR SUBCUT SCH (08:50)
[2020-09-15 09:07] LABS: Total Iron Binding Capacity 290 mcg/dL (250-450); Transferrin 207 mg/dL (203-362)
[2020-09-15 09:25] LABS: Ferritin 220.4 ng/mL (11-307)
[2020-09-15 11:31] LABS: Hematocrit 26 % (35-47); Hemoglobin 8.6 g/dL (12.0-16.0); Mean Corpuscular HGB Conc 33 g/dL (31-36); Mean Corpuscular Hemoglobin 31 pg (27-31); Mean Corpuscular Volume 93 fL (80-97); Mean Platelet Volume 7.9 fL (7.4-10.4); Platelet Count 137 10^3/uL (150-450); Red Blood Count 2.79 10^6 /uL (3.70-4.87); Red Cell Distribution Width 16 % (10-15); White Blood Count 5.8 10^3/uL (3.5-10.8)
[2020-09-15] MEDS: Polyethylene Glycol 3350 17 GM PACKET PO PRN (14:12)
[2020-09-15] MEDS ORDERED: Iron Sucrose 200 MG in NS 0.9% 100 ml BAG 100 ML IVPB ONE (15:18)
[2020-09-16 05:27] LABS: CO2 Carbon Dioxide 27 mmol/L (22-32); Calcium 7.8 mg/dL (8.6-10.3); Chloride 104 mmol/L (101-111); Magnesium 2.7 mg/dL (1.9-2.7); Sodium 138 mmol/L (135-145)
[2020-09-16 05:32] LABS: BUN/Creatinine Ratio 18.6 (8-20); Blood Urea Nitrogen 11 mg/dL (6-24); EGFR African American 117.8 (>60); EGFR Non-African American 97.3 (>60); Glucose 104 mg/dL (70-100)
[2020-09-16 05:33] LABS: Anion Gap 7 mmol/L (2-11)
[2020-09-16 05:56] LABS: ABS Eosinophils 0.3 10^3/ul (0-0.6); ABS Lymphocytes 0.9 10^3/ul (1.0-4.8); ABS Monocytes 0.5 10^3/ul (0-0.8); ABS Neutrophils 3.8 10^3/ul (1.5-7.7); Eosinophil % 5.4 %; Hematocrit 21 % (35-47); Hemoglobin 7.1 g/dL (12.0-16.0); Lymphocyte % 16.6 %; Mean Corpuscular HGB Conc 34 g/dL (31-36); Mean Corpuscular Hemoglobin 31 pg (27-31); Mean Corpuscular Volume 91 fL (80-97); Mean Platelet Volume 7.9 fL (7.4-10.4); Nucleated Red Blood Cells % 0.1; Platelet Count 139 10^3/uL (150-450); Red Blood Count 2.32 10^6 /uL (3.70-4.87); Red Cell Distribution Width 16 % (10-15); White Blood Count 5.5 10^3/uL (3.5-10.8)
[2020-09-16] MEDS: Senna TAB 8.6 mg TAB PO PRN (08:39)
[2020-09-16 08:42] LABS: Hematocrit 21 % (35-47); Hemoglobin 7.1 g/dL (12.0-16.0)
[2020-09-16] MEDS: Enoxaparin 40 MG/0.4 ML SYR SUBCUT SCH (08:42)
[2020-09-16 10:44] LABS: Urine Appearance Clear; Urine Bilirubin Negative (Negative); Urine Blood 1+ (Negative); Urine Color Yellow; Urine Glucose Negative (Negative); Urine Ketones 1+ (Negative); Urine Nitrite Negative (Negative); Urine Protein Negative (Negative); Urine Specific Gravity 1.014 (1.010-1.030); Urine Urobilinogen Negative (Negative)
[2020-09-16 10:53] LABS: Urine Bacteria Absent (Absent); Urine Red Blood Cell Trace(0-2/hpf) (Absent); Urine Squamous Epithelial Cell Present (Absent); Urine White Blood Cell Trace(0-5/hpf) (Absent)
[2020-09-16] MEDS: Cholecalciferol (VIT D3) 1,000 unit TAB PO SCH (13:34)
[2020-09-16] MEDS: Multivitamins ADULT w/MIN LIQ 15 ML UDC PO SCH (14:17)
[2020-09-16 15:02] LABS: Hematocrit 24 % (35-47); Hemoglobin 8.2 g/dL (12.0-16.0)
[2020-09-17] MEDS: Morphine 2 MG/ML SYRINGE IV PRN (02:56)
[2020-09-17] MEDS ORDERED: Scopolamine PATCH Remove NOTE PATCH OFF SCH (04:00)
[2020-09-17 04:52] LABS: ABS Basophils 0.1 10^3/ul (0-0.2); ABS Eosinophils 0.3 10^3/ul (0-0.6); ABS Monocytes 0.4 10^3/ul (0-0.8); ABS Neutrophils 3.6 10^3/ul (1.5-7.7); Eosinophil % 6.2 %; Hematocrit 23 % (35-47); Hemoglobin 7.9 g/dL (12.0-16.0); Lymphocyte % 17.9 %; Mean Corpuscular HGB Conc 35 g/dL (31-36); Mean Corpuscular Hemoglobin 31 pg (27-31); Mean Corpuscular Volume 91 fL (80-97); Mean Platelet Volume 7.2 fL (7.4-10.4); Nucleated Red Blood Cells % 0.3; Platelet Count 149 10^3/uL (150-450); Red Blood Count 2.53 10^6 /uL (3.70-4.87); Red Cell Distribution Width 15 % (10-15); White Blood Count 5.4 10^3/uL (3.5-10.8)
[2020-09-17 05:09] LABS: Albumin 3.1 g/dL (3.2-5.2); Albumin/Globulin Ratio 1.7 (1-3); BUN/Creatinine Ratio 14.5 (8-20); Calcium 7.5 mg/dL (8.6-10.3); EGFR African American 127.7 (>60); EGFR Non-African American 105.6 (>60); Globulin 1.8 g/dL (2-4); Magnesium 2.4 mg/dL (1.9-2.7); Total Bilirubin 0.6 mg/dL (0.2-1.0); Total Protein 4.9 g/dL (6.4-8.9)
[2020-09-17] MEDS: Enoxaparin 40 MG/0.4 ML SYR SUBCUT SCH (07:57)
[2020-09-17] MEDS: Cholecalciferol (VIT D3) 1,000 unit TAB PO SCH (07:57)
[2020-09-17] MEDS: Multivitamins ADULT w/MIN LIQ 15 ML UDC PO SCH (07:58)
[2020-09-17] MEDS ORDERED: Potassium Chlor 20 meq TAB.ER PO ONE (08:55)
[2020-09-18 05:40] LABS: Hematocrit 24 % (35-47); Hemoglobin 7.8 g/dL (12.0-16.0); Mean Corpuscular HGB Conc 33 g/dL (31-36); Mean Corpuscular Hemoglobin 31 pg (27-31); Mean Corpuscular Volume 95 fL (80-97); Mean Platelet Volume 7.3 fL (7.4-10.4); Platelet Count 187 10^3/uL (150-450); Red Blood Count 2.49 10^6 /uL (3.70-4.87); Red Cell Distribution Width 16 % (10-15); White Blood Count 4.6 10^3/uL (3.5-10.8)
[2020-09-18 05:44] LABS: Calcium 7.4 mg/dL (8.6-10.3); Magnesium 2.3 mg/dL (1.9-2.7); Potassium 3.3 mmol/L (3.5-5.0)
[2020-09-18 05:50] LABS: BUN/Creatinine Ratio 18.2 (8-20); EGFR African American 165.2 (>60); EGFR Non-African American 136.6 (>60)
[2020-09-18] MEDS ORDERED: Potassium Chlor 20 meq TAB.ER PO ONE (08:52)
[2020-09-18] MEDS ORDERED: LENALIDOMIDE 25 MG PO SCH (09:00)
[2020-09-18] MEDS: Enoxaparin 40 MG/0.4 ML SYR SUBCUT SCH (09:40)
[2020-09-18] MEDS: Cholecalciferol (VIT D3) 1,000 unit TAB PO SCH (09:41)
[2020-09-18] MEDS: Multivitamins/Minerals TAB PO SCH (09:41)
[2020-09-18] MEDS: Polyethylene Glycol 3350 17 GM PACKET PO PRN (13:52)
[2020-09-19 06:11] LABS: ABS Basophils 0.1 10^3/ul (0-0.2); ABS Eosinophils 0.3 10^3/ul (0-0.6); ABS Lymphocytes 0.9 10^3/ul (1.0-4.8); ABS Monocytes 0.5 10^3/ul (0-0.8); ABS Neutrophils 3.7 10^3/ul (1.5-7.7); Eosinophil % 4.9 %; Hematocrit 25 % (35-47); Hemoglobin 8.5 g/dL (12.0-16.0); Lymphocyte % 17.4 %; Mean Corpuscular HGB Conc 34 g/dL (31-36); Mean Corpuscular Hemoglobin 31 pg (27-31); Mean Corpuscular Volume 93 fL (80-97); Nucleated Red Blood Cells % 0.2; Platelet Count 244 10^3/uL (150-450); Red Blood Count 2.74 10^6 /uL (3.70-4.87); Red Cell Distribution Width 16 % (10-15); White Blood Count 5.4 10^3/uL (3.5-10.8)
[2020-09-19 06:21] LABS: BUN/Creatinine Ratio 24.4 (8-20); Calcium 7.9 mg/dL (8.6-10.3); EGFR Non-African American 133.1 (>60); Potassium 3.4 mmol/L (3.5-5.0)
[2020-09-19] MEDS ORDERED: Potassium Chlor 20 meq TAB.ER PO ONE (07:20)
[2020-09-19] MEDS: Cholecalciferol (VIT D3) 1,000 unit TAB PO SCH (09:54)
[2020-09-19] MEDS: Enoxaparin 40 MG/0.4 ML SYR SUBCUT SCH (09:54)
[2020-09-19] MEDS: Multivitamins/Minerals TAB PO SCH (09:55)
[2020-09-19] MEDS ORDERED: Dexamethasone IV 40 MG in NS 0.9% 50 ML 50 ML IVPB ONE (10:00)
[2020-09-20 05:09] LABS: ABS Lymphocytes 0.8 10^3/ul (1.0-4.8); ABS Monocytes 0.6 10^3/ul (0-0.8); ABS Neutrophils 5.9 10^3/ul (1.5-7.7); Hematocrit 26 % (35-47); Hemoglobin 8.8 g/dL (12.0-16.0); Lymphocyte % 11.3 %; Mean Corpuscular HGB Conc 34 g/dL (31-36); Mean Corpuscular Hemoglobin 31 pg (27-31); Mean Corpuscular Volume 93 fL (80-97); Mean Platelet Volume 7.2 fL (7.4-10.4); Nucleated Red Blood Cells % 0.2; Platelet Count 318 10^3/uL (150-450); Red Blood Count 2.81 10^6 /uL (3.70-4.87); Red Cell Distribution Width 16 % (10-15); White Blood Count 7.4 10^3/uL (3.5-10.8)
[2020-09-20 05:41] LABS: BUN/Creatinine Ratio 35.6 (8-20); Calcium 8.4 mg/dL (8.6-10.3); EGFR Non-African American 133.1 (>60)
[2020-09-20] MEDS: Cholecalciferol (VIT D3) 1,000 unit TAB PO SCH (09:20)
[2020-09-20] MEDS: Multivitamins/Minerals TAB PO SCH (09:21)
[2020-09-20] MEDS: Enoxaparin 40 MG/0.4 ML SYR SUBCUT SCH (09:23)
[2020-09-20] MEDS: LENALIDOMIDE 10 MG PO SCH (11:09)
[2020-09-21] MEDS: Cholecalciferol (VIT D3) 1,000 unit TAB PO SCH (09:23)
[2020-09-21] MEDS: Multivitamins/Minerals TAB PO SCH (09:23)
[2020-09-21] MEDS: LENALIDOMIDE 10 MG PO SCH (09:23)
[2020-09-21] MEDS: Enoxaparin 40 MG/0.4 ML SYR SUBCUT SCH (09:23)
[2020-09-21] MEDS: Senna TAB 8.6 mg TAB PO PRN (22:00)
[2020-09-22] MEDS: Enoxaparin 40 MG/0.4 ML SYR SUBCUT SCH (09:35)
[2020-09-22] MEDS: Multivitamins/Minerals TAB PO SCH (09:35)
[2020-09-22] MEDS: Cholecalciferol (VIT D3) 1,000 unit TAB PO SCH (09:35)
[2020-09-22] MEDS: LENALIDOMIDE 10 MG PO SCH (09:36)
[2020-09-22 12:13] VITALS: BP 139/65
== END 2020-09-22 14:12 | DRG 481 ==
LOC: ED 17:19 → SSU 21:21
PROVIDERS: ADMIT Internal Medicine; ATTEND Internal Medicine

== ENCOUNTER 2020-09-22 14:15 | Inpatient (IN) ==
[2020-09-22] MEDS ORDERED: Senna TAB 8.6 mg TAB PO PRN (17:26)
[2020-09-23] MEDS: LENALIDOMIDE 10 MG PO SCH (09:54)
[2020-09-23] MEDS: Cholecalciferol (VIT D3) 1,000 unit TAB PO SCH (10:02)
[2020-09-23] MEDS: Enoxaparin 40 MG/0.4 ML SYR SUBCUT SCH (10:03)
[2020-09-24] MEDS: Cholecalciferol (VIT D3) 1,000 unit TAB PO SCH (09:31)
[2020-09-24] MEDS: LENALIDOMIDE 10 MG PO SCH (09:32)
[2020-09-24] MEDS: Enoxaparin 40 MG/0.4 ML SYR SUBCUT SCH (09:32)
[2020-09-25] MEDS: Cholecalciferol (VIT D3) 1,000 unit TAB PO SCH (08:45)
[2020-09-25] MEDS: Enoxaparin 40 MG/0.4 ML SYR SUBCUT SCH (08:49)
[2020-09-25] MEDS: LENALIDOMIDE 10 MG PO SCH (08:51)
[2020-09-26] MEDS: Enoxaparin 40 MG/0.4 ML SYR SUBCUT SCH (08:55)
[2020-09-26] MEDS: Cholecalciferol (VIT D3) 1,000 unit TAB PO SCH (08:55)
[2020-09-26] MEDS: LENALIDOMIDE 10 MG PO SCH (08:55)
[2020-09-27] MEDS: Cholecalciferol (VIT D3) 1,000 unit TAB PO SCH (09:05)
[2020-09-27] MEDS: Enoxaparin 40 MG/0.4 ML SYR SUBCUT SCH (09:05)
[2020-09-27] MEDS: LENALIDOMIDE 10 MG PO SCH (09:05)
[2020-09-27] MEDS ORDERED: Dexamethasone Oral Solution 1 MG/ML 10 ML UDC (10 MG) PO ONE (15:35)
[2020-09-28] MEDS: Cholecalciferol (VIT D3) 1,000 unit TAB PO SCH (10:21)
[2020-09-28] MEDS: Enoxaparin 40 MG/0.4 ML SYR SUBCUT SCH (10:22)
[2020-09-28] MEDS: LENALIDOMIDE 10 MG PO SCH (10:27)
[2020-09-28 11:34] VITALS: BP 120/54
== END 2020-09-28 13:10 | DRG 543 ==
LOC: SSU 14:15
PROVIDERS: ADMIT Internal Medicine; ATTEND Internal Medicine

== ENCOUNTER 2022-01-12 09:56 | Observation (INO) ==
[~2022-01-12 09:56] MED LIST: Piperacillin/Tazobac ADVAN 3.375 GM in NS 0.9% 100 ml BAG 100 ML IV SCH
[2022-01-12 11:27] LABS: ABS Eosinophils 0.1 10^3/ul (0-0.6); ABS Lymphocytes 0.8 10^3/ul (1.0-4.8); ABS Monocytes 1.4 10^3/ul (0-0.8); Eosinophil % 0.9 %; Hematocrit 32 % (35-47); Hemoglobin 10.6 g/dL (12.0-16.0); Lymphocyte % 7.4 %; Mean Corpuscular HGB Conc 33 g/dL (31-36); Mean Corpuscular Hemoglobin 28 pg (27-31); Mean Corpuscular Volume 86 fL (80-97); Mean Platelet Volume 6.7 fL (7.4-10.4); Nucleated Red Blood Cells % 0.1; Platelet Count 468 10^3/uL (150-450); Red Blood Count 3.72 10^6 /uL (3.70-4.87); Red Cell Distribution Width 18 % (10-15); White Blood Count 11.4 10^3/uL (3.5-10.8)
[2022-01-12 11:38] LABS: Albumin 3.3 g/dL (3.2-5.2); Calcium 8.5 mg/dL (8.6-10.3); Potassium 3.3 mmol/L (3.5-5.0); Total Bilirubin 0.3 mg/dL (0.2-1.0)
[2022-01-12 11:44] LABS: Albumin/Globulin Ratio 1.1 (1-3); Globulin 3.1 g/dL (2-4); Total Protein 6.4 g/dL (6.4-8.9)
[2022-01-12] MEDS ORDERED: Ondansetron 4 mg VIAL 2 MG/ML 2 ml VIAL IV PRN (12:31)
[2022-01-12] MEDS ORDERED: Morphine 2 MG/ML SYRINGE IV PRN (12:41)
[2022-01-12] MEDS ORDERED: Zosyn per Pharmacy NOTE FOLLOW UP SCH (13:00)
[2022-01-12] MEDS ORDERED: Lenalidomide 10 mg CAP (NF) PO SCH (13:00)
[2022-01-12] MEDS ORDERED: Piperacillin/Tazobac ADVAN 3.375 GM in NS 0.9% 100 ml BAG 100 ML IV SCH (13:00)
[2022-01-12] MEDS: NS 0.9% 1000 ml BAG 1,000 ML IV SCH ×2 (15:10→22:22)
[2022-01-12] MEDS: Enoxaparin 40 MG/0.4 ML SYR SUBCUT SCH (16:49)
[2022-01-12] MEDS: Chlorhexidine MOUTHWASH 0.12% 15 ML UDC SWISH SPIT SCH ×2 (16:49→21:32)
[2022-01-12] MEDS: KCL 20 MEQ/100 ML IVPREMIX 20 MEQ/100 ML BAG IV SCH ×2 (16:50→23:31)
[2022-01-12] MEDS: ZOSYN 3.375 GM Q8H per EXTENDED INFUSION IV SCH (17:42)
[2022-01-12] MEDS ORDERED: NS 0.9% IV ONE (21:00)
[2022-01-13] MEDS: ZOSYN 3.375 GM Q8H per EXTENDED INFUSION IV SCH ×3 (02:05→16:54)
[2022-01-13] MEDS: NS 0.9% 1000 ml BAG 1,000 ML IV SCH ×2 (02:14→21:59)
[2022-01-13 07:29] LABS: ABS Basophils 0.1 10^3/ul (0-0.2); ABS Eosinophils 0.2 10^3/ul (0-0.6); ABS Lymphocytes 1.1 10^3/ul (1.0-4.8); ABS Monocytes 1.1 10^3/ul (0-0.8); ABS Neutrophils 4.2 10^3/ul (1.5-7.7); Eosinophil % 2.8 %; Hematocrit 29 % (35-47); Hemoglobin 9.5 g/dL (12.0-16.0); Mean Corpuscular HGB Conc 33 g/dL (31-36); Mean Corpuscular Hemoglobin 29 pg (27-31); Mean Corpuscular Volume 86 fL (80-97); Mean Platelet Volume 6.7 fL (7.4-10.4); Platelet Count 372 10^3/uL (150-450); Red Blood Count 3.33 10^6 /uL (3.70-4.87); Red Cell Distribution Width 18 % (10-15); White Blood Count 6.7 10^3/uL (3.5-10.8)
[2022-01-13] MEDS: Chlorhexidine MOUTHWASH 0.12% 15 ML UDC SWISH SPIT SCH ×3 (08:28→21:37)
[2022-01-13] MEDS: Potassium Chlor 10 meq TAB PO SCH (08:29)
[2022-01-13] MEDS: Enoxaparin 40 MG/0.4 ML SYR SUBCUT SCH (15:25)
[2022-01-14] MEDS: ZOSYN 3.375 GM Q8H per EXTENDED INFUSION IV SCH ×3 (00:47→16:42)
[2022-01-14 06:13] LABS: ABS Basophils 0.1 10^3/ul (0-0.2); ABS Eosinophils 0.2 10^3/ul (0-0.6); ABS Monocytes 0.8 10^3/ul (0-0.8); ABS Neutrophils 3.6 10^3/ul (1.5-7.7); Eosinophil % 2.8 %; Hematocrit 28 % (35-47); Hemoglobin 9.3 g/dL (12.0-16.0); Lymphocyte % 18.5 %; Mean Corpuscular HGB Conc 34 g/dL (31-36); Mean Corpuscular Hemoglobin 29 pg (27-31); Mean Corpuscular Volume 85 fL (80-97); Mean Platelet Volume 6.7 fL (7.4-10.4); Nucleated Red Blood Cells % 0.1; Platelet Count 350 10^3/uL (150-450); Red Blood Count 3.25 10^6 /uL (3.70-4.87); Red Cell Distribution Width 18 % (10-15); White Blood Count 5.6 10^3/uL (3.5-10.8)
[2022-01-14 06:38] LABS: Calcium 7.6 mg/dL (8.6-10.3); Magnesium 1.5 mg/dL (1.9-2.7); eGFR CKD-EPI 94.8 (>60)
[2022-01-14] MEDS ORDERED: Magnesium Sulfate IV 3 GM in NS 0.9% 100 ml BAG 100 ML IVPB ONE (07:49)
[2022-01-14] MEDS ORDERED: Potassium Chloride LIQUID 20 MEQ/15 ML LIQUID PO ONE (07:50)
[2022-01-14] MEDS: Chlorhexidine MOUTHWASH 0.12% 15 ML UDC SWISH SPIT SCH ×4 (08:52→21:42)
[2022-01-14] MEDS: Potassium Chlor 10 meq TAB PO SCH (08:52)
[2022-01-14] MEDS: KCL 20 MEQ/100 ML IVPREMIX 20 MEQ/100 ML BAG IV SCH ×2 (09:46→13:01)
[2022-01-14] MEDS ORDERED: Magnesium Sulfate 2 GM IV (Premix) IVPB ONE (10:00)
[2022-01-14] MEDS ORDERED: Magnesium Sulfate 1 GM IV 1 GM/100 ML BAG IV ONE (11:00)
[2022-01-14] MEDS: Enoxaparin 40 MG/0.4 ML SYR SUBCUT SCH (14:26)
[2022-01-15] MEDS: NS 0.9% 1000 ml BAG 1,000 ML IV SCH (00:22)
[2022-01-15] MEDS: ZOSYN 3.375 GM Q8H per EXTENDED INFUSION IV SCH ×2 (01:56→08:17)
[2022-01-15 06:26] LABS: ABS Basophils 0.1 10^3/ul (0-0.2); ABS Eosinophils 0.2 10^3/ul (0-0.6); ABS Lymphocytes 1.3 10^3/ul (1.0-4.8); ABS Monocytes 0.8 10^3/ul (0-0.8); ABS Neutrophils 2.7 10^3/ul (1.5-7.7); Eosinophil % 4.9 %; Hematocrit 29 % (35-47); Hemoglobin 9.8 g/dL (12.0-16.0); Lymphocyte % 26.2 %; Mean Corpuscular HGB Conc 34 g/dL (31-36); Mean Corpuscular Hemoglobin 29 pg (27-31); Mean Corpuscular Volume 86 fL (80-97); Mean Platelet Volume 6.4 fL (7.4-10.4); Platelet Count 381 10^3/uL (150-450); Red Cell Distribution Width 18 % (10-15); White Blood Count 5.1 10^3/uL (3.5-10.8)
[2022-01-15 06:52] LABS: Calcium 7.4 mg/dL (8.6-10.3); Magnesium 2.2 mg/dL (1.9-2.7); Potassium 3.6 mmol/L (3.5-5.0); eGFR CKD-EPI 93.3 (>60)
[2022-01-15] MEDS: Chlorhexidine MOUTHWASH 0.12% 15 ML UDC SWISH SPIT SCH ×2 (08:17→17:48)
[2022-01-15] MEDS: Potassium Chlor 10 meq TAB PO SCH (08:17)
[2022-01-15] MEDS ORDERED: cefTRIAXone 1 gm/50 mL D5W 1 GM/50 ML BAG IV SCH (14:45)
[2022-01-15] MEDS ORDERED: cefTRIAXone 1 GM Q24H (Pharmacy Admix) IVPB SCH (15:00)
[2022-01-15] MEDS ORDERED: COVID-19 VACCINE, TRIS(PFIZER)/PF 30 MCG/0.3 ML IM ONE (15:30)
[2022-01-15 16:01] VITALS: BP 144/59
[2022-01-15] MEDS: Enoxaparin 40 MG/0.4 ML SYR SUBCUT SCH (17:48)
== END 2022-01-15 18:10 | disposition home or self-care (01) ==
LOC: CHOA 09:56 → MED 09:56 → SSU 01-13 22:12
PROVIDERS: ADMIT Internal Medicine Hematology & Oncology; ATTEND Internal Medicine Medical Oncology

== ENCOUNTER 2023-09-19 00:46 | Inpatient (IN) ==
[2023-09-19] MEDS ORDERED: Morphine 4 MG/ML VIAL (1 ml) IV ONE (01:22)
[2023-09-19 02:33] LABS: Activated Partial Thrombo Time 24.1 seconds (26.0-38.0); INR 1.01 (0.83-1.13)
[2023-09-19 02:43] LABS: ABS Basophils 0.1 10^3/uL (0.0-0.1); ABS Eosinophils 0.1 10^3/uL (0.0-0.5); ABS Lymphocytes 1.1 10^3/uL (1.0-4.8); ABS Neutrophils 5.6 10^3/uL (1.5-7.6); ABS Nucleated RBC 0.01 10^3/ul; Eosinophil % 0.7 %; Hematocrit 35.1 % (35-45); Hemoglobin 11.8 g/dL (11.5-14.3); Lymphocyte % 13.9 %; Mean Corpuscular Hgb Conc 33.5 g/dL (31-36); Mean Corpuscular Volume 92.4 fL (80-97); Mean Platelet Volume 7.1 fL (7.5-11.2); Nucleated Red Blood Cells % 0.1 %/100WBC (0.0-0.8); Platelet Count 235 10^3/uL (150-450); Red Blood Count 3.79 10^6/uL (3.63-4.92); Red Cell Distribution Width 16.3 % (12-17); White Blood Count 7.8 10^3/uL (3.8-11.8)
[2023-09-19 03:02] LABS: Albumin 3.8 g/dL (3.2-5.2); Albumin/Globulin Ratio 1.7 (1-3); Calcium 9.2 mg/dL (8.6-10.3); Creatinine, Serum 0.64 mg/dL (0.51-0.95); Globulin 2.2 g/dL (2-4); Potassium 3.3 mmol/L (3.5-5.0); Total Bilirubin 0.2 mg/dL (0.2-1.0)
[2023-09-19] MEDS ORDERED: Lactated Ringers 1000 ml BAG 1,000 ML IV ONE (03:18)
[2023-09-19] MEDS: Potassium Chloride IV 40 MEQ in Lactated Ringers 1000 ml BAG 1,000 ML IVPB SCH ×2 (06:21→21:25)
[2023-09-19 07:26] LABS: Urine Appearance Clear; Urine Bilirubin Negative (Negative); Urine Blood Negative (Negative); Urine Color Yellow; Urine Glucose Negative (Negative); Urine Ketones Negative (Negative); Urine Nitrite Negative (Negative); Urine Protein Negative (Negative); Urine Specific Gravity 1.018 (1.002-1.030); Urine Urobilinogen Negative (Negative)
[2023-09-19] MEDS ORDERED: Heparin 5000 UNITS/ML 1 mL VIAL SUBCUT SCH (09:00)
[2023-09-19] MEDS ORDERED: Lactated Ringers 500 ml BAG 500 ML IV ONE (09:34)
[2023-09-19] MEDS ORDERED: ceFAZolin 2 GM in NS PREMIX 2 GM/100 ML BAG IVPB ONE (13:52)
[2023-09-19] MEDS ORDERED: Dexamethasone IV 4 MG/ML VIAL 1 ml VIAL ONE ×2 (13:57→14:06)
[2023-09-19] MEDS ORDERED: ROPIVACAINE 5 MG/ML 30 ML BTL (0.5%) ONE ×2 (13:57→14:26)
[2023-09-19] MEDS ORDERED: Midazolam 2 mg/2 ml VIAL 1 mg/ml 2 ml VIAL (2 mg) ONE (13:57)
[2023-09-19] MEDS ORDERED: Glycopyrrolate IV 0.2 MG/ML 1 ML VIAL ONE (14:06)
[2023-09-19] MEDS ORDERED: Ondansetron 4 mg VIAL 2 MG/ML 2 ml VIAL ONE ×2 (14:06→19:47)
[2023-09-19] MEDS ORDERED: Propofol 10 MG/ML 20 ML BTL ONE (14:06)
[2023-09-19] MEDS ORDERED: Lidocaine 2% PF 5 ML VIAL ONE (14:06)
[2023-09-19] MEDS ORDERED: fentaNYL 100 mcg/2 ml 50 MCG/ML VIAL ONE ×4 (14:09→19:50)
[2023-09-19] MEDS ORDERED: Bupivacaine 0.5% SDV PF 30ML VIAL ONE (14:20)
[2023-09-19] MEDS ORDERED: Phenylephrine 40 mcg/mL 10mL (400mcg) SYRINGE ONE (15:20)
[2023-09-19] MEDS ORDERED: Phenylephrine IV 10 MG/ML 1 ml VIAL ONE (15:31)
[2023-09-19] MEDS ORDERED: Vancomycin 1,000 MG VIAL ONE (15:41)
[2023-09-19] MEDS ORDERED: Ondansetron 4 mg VIAL 2 MG/ML 2 ml VIAL IV PRN (18:41)
[2023-09-19] MEDS ORDERED: Naloxone 0.4 mg VIAL 0.4 mg/ml 1 ml VIAL IV PRN (18:41)
[2023-09-19] MEDS: fentaNYL 100 mcg/2 ml 50 MCG/ML VIAL IV PRN ×2 (19:51→20:01)
[2023-09-19] MEDS ORDERED: Lactulose 30 ml UDC PO PRN (21:04)
[2023-09-19] MEDS ORDERED: Magnesium Hydroxide LIQ 30 ML UDC PO PRN (21:04)
[2023-09-19 21:22] LABS: Hematocrit 25.2 % (35-45); Hemoglobin 8.5 g/dL (11.5-14.3)
[2023-09-19] MEDS: Magnesium Hydroxide LIQ 30 ML UDC PO SCH (21:36)
[2023-09-19 22:19] LABS: HIV 4th Generation Nonreactive (Nonreactive)
[2023-09-19] MEDS: ceFAZolin 1 GM in Dextrose 1 GM/50 ML BAG IVPB SCH (23:18)
[2023-09-20 00:52] LABS: Urine Appearance Clear; Urine Bilirubin Negative (Negative); Urine Blood 1+ (Negative); Urine Color Yellow; Urine Glucose Negative (Negative); Urine Ketones Trace (Negative); Urine Nitrite Positive (Negative); Urine Protein Negative (Negative); Urine Specific Gravity 1.018 (1.002-1.030); Urine Urobilinogen Negative (Negative)
[2023-09-20 01:06] LABS: Urine Bacteria Absent (Absent); Urine Red Blood Cell 3+(>10/hpf) (Absent); Urine White Blood Cell 1+(6-10/hpf) (Absent)
[2023-09-20] MEDS: ceFAZolin 1 GM in Dextrose 1 GM/50 ML BAG IVPB SCH ×2 (06:31→14:30)
[2023-09-20] MEDS: Potassium Chloride IV 40 MEQ in Lactated Ringers 1000 ml BAG 1,000 ML IVPB SCH ×3 (07:56→18:12)
[2023-09-20 07:57] LABS: Hepatitis B Surface Antigen Nonreactive (Nonreactive)
[2023-09-20] MEDS: Magnesium Hydroxide LIQ 30 ML UDC PO SCH ×2 (08:02→20:52)
[2023-09-20 08:15] LABS: Hepatitis C Antibody Negative (Negative)
[2023-09-20 08:39] LABS: Hematocrit 20.5 % (35-45); Mean Corpuscular Hemoglobin 31.5 pg (27-33); Mean Corpuscular Volume 92.7 fL (80-97); Mean Platelet Volume 7.5 fL (7.5-11.2); Platelet Count 193 10^3/uL (150-450); Red Blood Count 2.22 10^6/uL (3.63-4.92); Red Cell Distribution Width 16.1 % (12-17); White Blood Count 5.1 10^3/uL (3.8-11.8)
[2023-09-20 08:56] LABS: Calcium 8.3 mg/dL (8.6-10.3); Creatinine, Serum 0.64 mg/dL (0.51-0.95); Magnesium 1.6 mg/dL (1.9-2.7)
[2023-09-20] MEDS ORDERED: Enoxaparin 40 MG/0.4 ML SYR SUBCUT SCH (12:00)
[2023-09-20] MEDS: Enoxaparin 40 MG/0.4 ML SYR SUBCUT SCH (12:10)
[2023-09-20 15:49] LABS: Hepatitis B Surface Ab Indeterminate (Immune)
[2023-09-20] MEDS ORDERED: Magnesium Sulf 4 GM/100 ML IV 4,000 MG/100 ML BAG IVPB ONE (17:22)
[2023-09-20 18:12] LABS: Hematocrit 23.3 % (35-45); Hemoglobin 8.1 g/dL (11.5-14.3)
[2023-09-21 06:03] LABS: ABS Lymphocytes 0.8 10^3/uL (1.0-4.8); ABS Monocytes 0.8 10^3/uL (0.0-0.9); ABS Neutrophils 4.7 10^3/uL (1.5-7.6); ABS Nucleated RBC 0.01 10^3/ul; Eosinophil % 0.1 %; Hemoglobin 7.3 g/dL (11.5-14.3); Mean Corpuscular Hemoglobin 30.9 pg (27-33); Mean Corpuscular Hgb Conc 34.8 g/dL (31-36); Mean Corpuscular Volume 88.8 fL (80-97); Mean Platelet Volume 7.2 fL (7.5-11.2); Nucleated Red Blood Cells % 0.2 %/100WBC (0.0-0.8); Platelet Count 151 10^3/uL (150-450); Red Blood Count 2.36 10^6/uL (3.63-4.92); Red Cell Distribution Width 16.4 % (12-17); White Blood Count 6.4 10^3/uL (3.8-11.8)
[2023-09-21 06:19] LABS: Calcium 7.6 mg/dL (8.6-10.3); Creatinine, Serum 0.62 mg/dL (0.51-0.95); Magnesium 2.9 mg/dL (1.9-2.7); Potassium 3.8 mmol/L (3.5-5.0); eGFR CKD-EPI 86.7 (>60)
[2023-09-21] MEDS: Magnesium Hydroxide LIQ 30 ML UDC PO SCH (08:42)
[2023-09-21] MEDS: Potassium Chloride IV 40 MEQ in Lactated Ringers 1000 ml BAG 1,000 ML IVPB SCH (08:54)
[2023-09-21] MEDS: Enoxaparin 40 MG/0.4 ML SYR SUBCUT SCH (12:50)
[2023-09-22 05:55] LABS: ABS Lymphocytes 0.6 10^3/uL (1.0-4.8); ABS Monocytes 0.4 10^3/uL (0.0-0.9); ABS Neutrophils 5.2 10^3/uL (1.5-7.6); Eosinophil % 0.7 %; Hematocrit 20.1 % (35-45); Hemoglobin 6.9 g/dL (11.5-14.3); Lymphocyte % 9.9 %; Mean Corpuscular Hemoglobin 31.4 pg (27-33); Mean Corpuscular Hgb Conc 34.4 g/dL (31-36); Mean Corpuscular Volume 91.2 fL (80-97); Mean Platelet Volume 7.6 fL (7.5-11.2); Nucleated Red Blood Cells % 0.1 %/100WBC (0.0-0.8); Platelet Count 155 10^3/uL (150-450); Red Cell Distribution Width 16.5 % (12-17); White Blood Count 6.3 10^3/uL (3.8-11.8)
[2023-09-22 06:12] LABS: Calcium 7.5 mg/dL (8.6-10.3); Creatinine, Serum 0.52 mg/dL (0.51-0.95); Magnesium 2.3 mg/dL (1.9-2.7); Potassium 3.2 mmol/L (3.5-5.0); eGFR CKD-EPI 90.4 (>60)
[2023-09-22] MEDS ORDERED: Potassium Chlor 20 meq TAB.ER PO ONE (07:18)
[2023-09-22] MEDS: Enoxaparin 40 MG/0.4 ML SYR SUBCUT SCH (12:17)
[2023-09-23 05:55] LABS: ABS Eosinophils 0.1 10^3/uL (0.0-0.5); ABS Lymphocytes 0.9 10^3/uL (1.0-4.8); ABS Monocytes 0.4 10^3/uL (0.0-0.9); ABS Nucleated RBC 0.04 10^3/ul; Eosinophil % 1.5 %; Hematocrit 25.2 % (35-45); Hemoglobin 8.8 g/dL (11.5-14.3); Lymphocyte % 13.8 %; Mean Corpuscular Hemoglobin 30.5 pg (27-33); Mean Corpuscular Hgb Conc 34.7 g/dL (31-36); Mean Corpuscular Volume 87.9 fL (80-97); Mean Platelet Volume 7.4 fL (7.5-11.2); Nucleated Red Blood Cells % 0.6 %/100WBC (0.0-0.8); Platelet Count 181 10^3/uL (150-450); Red Blood Count 2.87 10^6/uL (3.63-4.92); Red Cell Distribution Width 17.1 % (12-17); White Blood Count 6.4 10^3/uL (3.8-11.8)
[2023-09-23 06:59] LABS: Potassium 3.4 mmol/L (3.5-5.0)
[2023-09-23 07:00] LABS: Calcium 7.7 mg/dL (8.6-10.3); Creatinine, Serum 0.46 mg/dL (0.51-0.95); Magnesium 1.9 mg/dL (1.9-2.7); Phosphorus 2.4 mg/dL (2.5-5.0); eGFR CKD-EPI 93.1 (>60)
[2023-09-23] MEDS ORDERED: Potassium Chlor 20 meq TAB.ER PO ONE (08:26)
[2023-09-23] MEDS: Enoxaparin 40 MG/0.4 ML SYR SUBCUT SCH (12:30)
[2023-09-24 05:34] LABS: ABS Eosinophils 0.1 10^3/uL (0.0-0.5); ABS Lymphocytes 0.9 10^3/uL (1.0-4.8); ABS Monocytes 0.4 10^3/uL (0.0-0.9); ABS Neutrophils 5.4 10^3/uL (1.5-7.6); ABS Nucleated RBC 0.01 10^3/ul; Eosinophil % 1.4 %; Hematocrit 25.8 % (35-45); Hemoglobin 8.9 g/dL (11.5-14.3); Lymphocyte % 12.7 %; Mean Corpuscular Hemoglobin 30.5 pg (27-33); Mean Corpuscular Hgb Conc 34.6 g/dL (31-36); Mean Corpuscular Volume 88.2 fL (80-97); Mean Platelet Volume 6.9 fL (7.5-11.2); Nucleated Red Blood Cells % 0.1 %/100WBC (0.0-0.8); Platelet Count 209 10^3/uL (150-450); Red Blood Count 2.93 10^6/uL (3.63-4.92); Red Cell Distribution Width 16.6 % (12-17); White Blood Count 6.9 10^3/uL (3.8-11.8)
[2023-09-24 05:51] LABS: Calcium 8.1 mg/dL (8.6-10.3); Creatinine, Serum 0.47 mg/dL (0.51-0.95); Magnesium 1.9 mg/dL (1.9-2.7); Potassium 3.3 mmol/L (3.5-5.0); eGFR CKD-EPI 92.7 (>60)
[2023-09-24] MEDS ORDERED: KCL 20 MEQ/100 ML IVPREMIX 20 MEQ/100 ML BAG IV ONE (07:57)
[2023-09-24] MEDS ORDERED: Potassium Chlor 20 meq TAB.ER PO ONE (07:58)
[2023-09-24 09:10] LABS: Rapid COVID-19 Molecular Undetected (Undetected)
[2023-09-24] MEDS: Enoxaparin 40 MG/0.4 ML SYR SUBCUT SCH (15:23)
[2023-09-25 06:34] VITALS: BP 104/74
== END 2023-09-25 09:10 | DRG 481 ==
LOC: ED 00:46 → EDHOLD 04:17 → SUATTDRO 04:17 → SSU 09:48
PROVIDERS: ADMIT Internal Medicine; ATTEND Student in an Organized Health Care Education/Training Program